=== PATIENT | female | born 1965 | race Caucasian/White ===

== ENCOUNTER 2016-06-01 16:29 | Emergency (ER) | payer OTHER ==
[~2016-06-01] VITALS: Ht 157.5 cm; Wt 73.9 kg
[~2016-06-01 16:29] MED LIST: ATOR10TA88 PO; FLUT1INH INH; INSDGI SC; KLN5X PO; LSN25 PO; MELO15TA4 PO; METF-384 PO; NAPR1TAB9 PO; NRN600 PO; NRT75 PO; OXYC-609 PO; PNC/500 PO; VNTHFA/IN INH; WLLSR100 PO
[2016-06-01 16:32] VITALS: Ht 157.5 cm; Wt 73.9 kg
--- NOTE | 2016-06-01 17:48 | DIAGNOSTIC IMAGING REPORT ---
CERVICAL SPINE 5 VIEWS HISTORY: right neck pain into r shoulder COMPARISON: Cervical spine 01/24/2013. FINDINGS: The cervical spine is visualized from C1 through the superior endplate of T1. There is no fracture. No subluxation. Mild disc space narrowing and endplate osteophytes at C5-C6 and C6-C7 which slightly progressed. Straightening of the cervical spine. Prevertebral soft tissues and the atlantodens interval are intact. IMPRESSION: No fracture or subluxation within the cervical spine. Progression of the mild degenerative disc disease within the lower cervical spine. Electronically signed by: Iggy Arango M.D. 06/01/2016 5:46 PM Dictated Date/Time: 06/01/2016 5:45 PM
[2016-06-01] MEDS ORDERED: CYCL10TA6 PO (18:28)
--- NOTE | 2016-06-01 18:28 | EMERGENCY ROOM VISIT NOTE ---
ED Visit Note First contact with patient: 16:38 CHIEF COMPLAINT: Right-sided neck pain radiating to the right shoulder since this morning History of present illness: Patient is a [id number] 50-year-old white female who presents to the emergency department for evaluation of pain in the right side of the neck that radiates into the top of the right shoulder. She states she woke with the pain today. She has done nothing for her symptoms. She states the pain is worse with movement of her neck and her shoulder. She denies any radiation of the pain down into her arm. There is no numbness, tingling, weakness or paresthesias. She denies a history of neck or shoulder problems. 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 She denies any symptoms into the left arm. She rates her pain an 8/ 10. REVIEW OF SYSTEMS: Review of systems as per HPI. All other systems reviewed were negative. At least 6 systems reviewed. PMH: Electronic medical records are reviewed and summarized as above/below. See Problem List. SOCIAL HISTORY: Patient lives at home. Smoker. PHYSICAL EXAM: Vital Signs: Reviewed Nurse's notes. MENTAL STATUS: Alert, oriented, and cooperative. HEENT: Normocephalic, atraumatic. Pupils equal, round, reactive to light and accommodation. EOMs intact without nystagmus. Sclera are anicteric. Tympanic membranes intact, with normal landmarks. External canals are clear. Oral and nasopharynx are clear. Mucous membranes are moist. NECK: Right cervical paraspinous, trapezius and rhomboid muscle tenderness, no midline tenderness over spinous processes, no muscle spasm. Cervical spine range of motion diminished secondary to discomfort. CHEST: Non-tender, symmetrical, no retractions. HEART: Regular rate and rhythm. LUNGS: Clear to auscultation. MUSCULOSKELETAL: Examination of the right shoulder does not reveal any deformity. She has no pain over the acromioclavicular joint, proximal biceps tendon or the rotator cuff insertion. Passive internal and external rotation are full. There is no crepitus or impingement with range of motion. NEUROLOGICAL: Alert, oriented, and cooperative. Cranial nerves, sensation and strength grossly intact. EMERGENCY DEPARTMENT COURSE: X-rays of the cervical spine were obtained. Mild degenerative changes were noted. The patient has reproducible muscular discomfort in the right neck and upper back region. Differential diagnoses entertained included cervical strain, cervical radiculopathy, shoulder tendinitis or bursitis, among others. The patient is on a no narcotics policy at our emergency department. She will be placed on Flexeril and was encouraged to use ibuprofen for discomfort. Heat and gentle stretching and range of motion exercises to help reduce stiffness and spasm. Patient was discharged home in good condition. She rated her discomfort a 5/10 at discharge, despite no intervention. CERVICAL SPINE 5 VIEWS HISTORY: right neck pain into r shoulder COMPARISON: Cervical spine 01/24/2013. FINDINGS: The cervical spine is visualized from C1 through the superior endplate of T1. There is no fracture. No subluxation. Mild disc space narrowing and endplate osteophytes at C5-C6 and C6-C7 which slightly progressed. Straightening of the cervical spine. Prevertebral soft tissues and the atlantodens interval are intact. IMPRESSION: No fracture or subluxation within the cervical spine. Progression of the mild degenerative disc disease within the lower cervical spine. Problem List Medical Problems: (1) Abscess of buttock, right Status: Resolved (2) ALCOH DEP NEC/NOS-UNSPEC Status: Chronic (3) Alcohol intoxication Status: Resolved (4) Alcohol intoxication Status: Resolved (5) Alcohol intoxication Status: Resolved (6) Altered level of consciousness Status: Resolved (7) ASTHMA, UNSPECIFIED Status: Chronic (8) BIPOLAR DISORDER, UNSPECIFIED Status: Chronic (9) Chronic dental pain Status: Chronic (10) Closed head injury Status: Resolved (11) COPD (chronic obstructive pulmonary disease) Status: Chronic (12) DDD (degenerative disc disease), lumbar Status: Chronic (13) DIAB NITESH WO COMPL, TYPE I [JUVENILE TYPE], NOT UNCNTRLD Status: Chronic (14) Diabetes mellitus Status: Chronic (15) ESOPHAGEAL REFLUX Status: Chronic (16) Fall Status: Resolved (17) Fall due to ice or snow Status: Resolved (18) Fall due to ice or snow Status: Resolved (19) FAM HX-CHR RESP COND NEC Status: Chronic (20) FAM HX-DIABETES MELLITUS Status: Chronic (21) FAM HX-ISCHEM HEART DIS Status: Chronic (22) FAMILY HISTORY OF OTHER CARDIOVASCULAR DISEASES Status: Chronic (23) FAMILY HX-MALIGNANCY NOS Status: Chronic (24) HERPES SIMPLEX NOS Status: Chronic (25) HTN (hypertension) Status: Chronic (26) Hyperglycemia Status: Resolved (27) Hyperglycemia Status: Resolved (28) HYPERTENSION NOS Status: Chronic (29) Hypothermia Status: Resolved (30) Left arm pain Status: Resolved (31) Left shoulder pain Status: Resolved (32) Left shoulder pain Status: Resolved (33) Lumbar back pain Status: Chronic (34) Neuropathy Status: Chronic (35) Otitis media Status: Resolved (36) Pain, dental Status: Resolved (37) Pain, dental Status: Resolved (38) PILONIDAL CYST W ABSCESS Status: Chronic (39) Right ankle sprain Status: Resolved (40) Right knee sprain Status: Resolved (41) Seizure disorder Status: Chronic (42) Spondylolisthesis of lumbar region Status: Chronic (43) TOBACCO USE DISORDER Status: Chronic Current/Historical Medications Scheduled Atorvastatin (Lipitor), 10 MG PO HS Bupropion HCl (Bupropion HCl Sr), 100 MG PO QAM Fluticasone Furoate-Vilanterol (Breo Ellipta), 1 PUFF INH DAILY Gabapentin (Gabapentin), 600 MG PO TID Insulin Glargine (Lantus), 20 UNITS SC QAM Insulin Glargine (Lantus), 30 UNITS SC QPM Lisinopril (Lisinopril), 2.5 MG PO DAILY Meloxicam (Meloxicam), 15 MG PO DAILY Metformin Hcl (Glucophage), 1,000 MG PO BID Nortriptyline HCl (Nortriptyline HCl), 75 MG PO HS Scheduled PRN Albuterol Hfa (Ventolin Hfa), 4 PUFFS INH TID PRN for SOB/Wheezing Clonazepam (Clonazepam), 0.5 MG PO TID PRN for Anxiety Cyclobenzaprine Hcl (Flexeril), 10 MG PO TID PRN for Muscle Spasms Naproxen (Aleve), 440 MG PO UD PRN for Pain Oxycodone HCl (Oxycodone HCl), 5 MG PO Q6-8HRS PRN for Pain Allergies Coded Allergies: Mushroom (Verified Allergy, Severe, THROAT SWELLS. CANT BREATHE, 06/01/16) Hydrocodone (Verified Allergy, Unknown, SHORTNESS OF BREATH, 06/01/16) Meperidine (Unverified Allergy, Unknown, VOMIT, 06/01/16) Morphine (Verified Allergy, Unknown, Vomiting, 06/01/16) Ketorolac (Verified Adverse Reaction, Intermediate, GI SYMPTOMS, 06/01/16) Tramadol (Verified Adverse Reaction, Unknown, vomiting, 06/01/16) Vital Signs Date Time Temp Pulse Resp B/P Pulse Ox O2 Delivery O2 Flow Rate FiO2 06/01/16 18:49 36.7 105 16 118/68 97 06/01/16 18:47 105 16 118/68 97 Room Air 06/01/16 16:32 36.7 110 16 122/70 97 Room Air Departure Information Impression Primary Impression: Neck pain on right side Prescriptions Cyclobenzaprine Hcl (FLEXERIL) 10 Mg Tab 10 MG PO TID Y for Muscle Spasms, #20 TAB Prov: Marina Munoz PA 06/01/16 Referrals Laureano Davila D.Zaheer (PCP) Patient Instructions My [facility] Additional Instructions Cyclobenzaprine (Flexeril) 10 mg: Take 1 pills 3 times daily as needed for muscle spasms.. Avoid alcohol, operating machinery or dangerous equipment, working on ladders or roofs, DRIVING, or situations where being under the influence may be dangerous. Ibuprofen(Motrin, Advil) may be used for fever or pain. Use 600mg every six hours as needed. Take with food. Avoid using more than 2400mg in a 24 hour period. Do not use 2400mg per day for more than three consecutive days without physician direction. Prolonged inappropriate use can lead to stomach upset or ulcers. This medication can be taken if you need to drive, work, or perform activities which may be dangerous when taking narcotic pain medication. (AND/OR) Acetaminophen(Tylenol) may be used for fever or pain. Use 1000mg every six hours as needed. Avoid using more than 3000mg in a 24 hour period. This medication can be taken if you need to drive, work, or perform activities which may be dangerous when taking narcotic pain medication. Rest and avoid heavy lifting until your symptoms resolve and then gradually return to full activity. A good rule of thumb is if it hurts your back to perform a certain activity, then it should be avoided until you are healthy again. A heating pad, warm compresses, or a hot shower may help with tight muscles and can be done several times a day as needed. Gentle stretching and range of motion exercises to help reduce stiffness and spasm. Continue current medications. Return to the ER immediately for any numbness, tingling, severe pain, loss of control of your bowels or bladder, inability to walk, or as needed. Follow up with your primary care physician within 3-5 days for a recheck of your current condition.
[2016-06-01 18:49] VITALS: BP 118/68; PULSE 105; TEMP 36.7; O2SAT 97
== END 2016-06-01 18:50 | disposition home or self-care (01) ==
LOC: C.EDB 16:30 → C.EDD 18:50
DX: M54.2 Cervicalgia (principal); F10.20 Alcohol dependence, uncomplicated; J45.909 Unspecified asthma, uncomplicated; F31.9 Bipolar disorder, unspecified; J44.9 Chronic obstructive pulmonary disease, unspecified; E10.9 Type 1 diabetes mellitus without complications; K21.9 Gastro-esophageal reflux disease without esophagitis; I10 Essential (primary) hypertension; M54.5 Low back pain; G89.29 Other chronic pain; G40.909 Epilepsy, unspecified, not intractable, without status epilepticus; M43.16 Spondylolisthesis, lumbar region; Z79.4 Long term (current) use of insulin; Z79.899 Other long term (current) drug therapy; Z83.3 Family history of diabetes mellitus; Z82.49 Family history of ischemic heart disease and other diseases of the circulatory system; Z83.6 Family history of other diseases of the respiratory system; Z80.9 Family history of malignant neoplasm, unspecified

== ENCOUNTER 2016-06-26 23:12 | Emergency (ER) | payer OTHER ==
[~2016-06-26] VITALS: Ht 157.5 cm; Wt 72.9 kg
[~2016-06-26 23:12] MED LIST changes: -PNC/500 PO
[2016-06-26 23:22] VITALS: TEMP 37; Ht 157.5 cm; Wt 72.9 kg
[2016-06-26] MEDS ORDERED: DEXAMETHASONE SOD INJ 10 MG/ML VIAL IV ONE (23:45)
[2016-06-26] MEDS ORDERED: AMPICILLIN/SULBACTAM SOD INJ 3,000 MG in SODIUM CHLORIDE 0.9% 100ML 100 ML IV ONE (23:45)
[2016-06-26] MEDS ORDERED: INSDGI SC ×2 (23:48)
[2016-06-26 23:56] LABS: BASO % 0.2 %; BASO ABS # 0.03 K/uL (0-0.2); COMPLETE YES; EOS % 1.6 %; HEMATOCRIT 46.1 % (37-47); IG% 0.2 %; LYMPH % 37.3 %; LYMPH ABS # 4.54 K/uL (1.2-3.4); MEAN CELL VOLUME 92.2 fL (80-100); MEAN CORPUSCULAR HGB CONC 35.8 g/dl (32-36); MEAN PLATELET VOLUME 11.2 fL (7.4-10.4); NEUT % 53.7 %; PLATELET COUNT 235 K/uL (130-400); WHITE BLOOD COUNT 12.16 K/uL (4.8-10.8)
[2016-06-27 00:17] LABS: BUN/CREATININE RATIO 21.6 (10-20); CREATININE 0.74 mg/dl (0.60-1.20)
[2016-06-27] MEDS ORDERED: OPTIRAY 320 IV PRN (00:30)
--- NOTE | 2016-06-27 01:49 | EMERGENCY ROOM VISIT NOTE ---
History First contact with patient: 23:32 Chief Complaint: FACIAL PAIN/INJURY Stated Complaint: SWOLLEN JAW ON LEFT SIDE History of Present Illness The patient is a 50 year old female who presents to the Emergency Room with complaints of left lower jaw pain and swelling for the past day with subjective fever and chills. Patient states all her teeth are gone. No injury to the area. No temperature was taken. Patient denies chest pain, dyspnea, neck stiffness, sore throat, earache, sinus pain or congestion, vomiting, diarrhea. Blood sugars have been in the low 100s. Tetanus is current per patient. She continues to smoke. Review of Systems See HPI for pertinent positives & negatives. A total of 10 systems reviewed and were otherwise negative. Past Medical/Surgical History Medical Problems: (1) Abscess of buttock, right (2) Acute diverticulitis of intestine (3) ALCOH DEP NEC/NOS-UNSPEC (4) Alcohol intoxication (5) Alcohol intoxication (6) Alcohol intoxication (7) Altered level of consciousness (8) ASTHMA, UNSPECIFIED (9) BIPOLAR DISORDER, UNSPECIFIED (10) Chronic dental pain (11) Closed head injury (12) COPD (chronic obstructive pulmonary disease) (13) DDD (degenerative disc disease), lumbar (14) DIAB NITESH WO COMPL, TYPE I [JUVENILE TYPE], NOT UNCNTRLD (15) Diabetes mellitus (16) ESOPHAGEAL REFLUX (17) Fall (18) Fall due to ice or snow (19) Fall due to ice or snow (20) FAM HX-CHR RESP COND NEC (21) FAM HX-DIABETES MELLITUS (22) FAM HX-ISCHEM HEART DIS (23) FAMILY HISTORY OF OTHER CARDIOVASCULAR DISEASES (24) FAMILY HX-MALIGNANCY NOS (25) HERPES SIMPLEX NOS (26) HTN (hypertension) (27) Hyperglycemia (28) Hyperglycemia (29) HYPERTENSION NOS (30) Hypothermia (31) Left arm pain (32) Left shoulder pain (33) Left shoulder pain (34) Lumbar back pain (35) Neuropathy (36) Otitis media (37) Pain, dental (38) Pain, dental (39) PILONIDAL CYST W ABSCESS (40) Pneumonia (41) Right ankle sprain (42) Right knee sprain (43) Seizure disorder (44) Spondylolisthesis of lumbar region (45) TOBACCO USE DISORDER Family History FHx: cancer FHx: diabetes FHx: heart disease FHx: hypertension FHx: lung disease Social History Smoking Status: Current Every Day Smoker Alcohol Use: occasionally Drug Use: none Marital Status: Housing Status: lives with family Occupation Status: employed Current/Historical Medications Scheduled Atorvastatin (Lipitor), 10 MG PO HS Bupropion HCl (Bupropion HCl Sr), 100 MG PO QAM Fluticasone Furoate-Vilanterol (Breo Ellipta), 1 PUFF INH DAILY Gabapentin (Gabapentin), 600 MG PO TID Insulin Glargine (Lantus), 20 UNITS SC QAM Insulin Glargine (Lantus), 30 UNITS SC QPM Lisinopril (Lisinopril), 2.5 MG PO DAILY Meloxicam (Meloxicam), 15 MG PO DAILY Metformin Hcl (Glucophage), 1,000 MG PO BID Nortriptyline HCl (Nortriptyline HCl), 75 MG PO HS Scheduled PRN Albuterol Hfa (Ventolin Hfa), 4 PUFFS INH TID PRN for SOB/Wheezing Clonazepam (Clonazepam), 0.5 MG PO TID PRN for Anxiety Naproxen (Aleve), 440 MG PO UD PRN for Pain Oxycodone HCl (Oxycodone HCl), 5 MG PO Q6-8HRS PRN for Pain Allergies Coded Allergies: Mushroom (Verified Allergy, Severe, THROAT SWELLS. CANT BREATHE, 06/26/16) Hydrocodone (Verified Allergy, Unknown, SHORTNESS OF BREATH, 06/26/16) Meperidine (Unverified Allergy, Unknown, VOMIT, 06/26/16) Morphine (Verified Allergy, Unknown, Vomiting, 06/26/16) Ketorolac (Verified Adverse Reaction, Intermediate, GI SYMPTOMS, 06/26/16) Tramadol (Verified Adverse Reaction, Unknown, vomiting, 06/26/16) Physical Exam Vital Signs Date Time Temp Pulse Resp B/P Pulse Ox O2 Delivery O2 Flow Rate FiO2 06/27/16 00:48 101 18 134/78 92 Room Air 06/26/16 23:22 37.0 107 18 154/99 94 Room Air Physical Exam VITALS: Vitals are noted on the nurse's note and reviewed by myself. Vital signs stable. GENERAL: Pleasant female, in no acute distress, nondiaphoretic, well-developed well-nourished. SKIN: The skin was without rashes, erythema, edema, or bruising. There is no tenting of the skin. Capillary reflex less than 2 seconds. HEAD: Normocephalic atraumatic. EARS: External auditory canals clear, tympanic membranes pearly webb without erythema or effusion bilaterally. EYES: Pupils equal round and reactive to light and accommodation. Conjunctivae without injection, sclerae without icterus. Extraocular movements intact. NOSE: Patent, turbinates without inflammation or discharge. No sinus tenderness. MOUTH: Mucous membranes moist. Pharynx without erythema or exudate. Uvula midline. Airway patent. Tongue does not deviate. No Curt angina Face: Left lower jaw line edematous and erythematous concerning for infection Dental exam: No teeth present. Minimal gum swelling to the left lower jawline with no palpable abscess NECK: Supple without nuchal rigidity. No lymphadenopathy. No thyromegaly. Cervical spine is nontender. No JVD. HEART: Regular rate and rhythm without murmurs gallops or rubs. LUNGS: Clear to auscultation bilaterally without wheezes, rales or rhonchi. No dullness to percussion. No retractions or accessory muscle use. ABDOMEN: Positive bowel sounds x 4. Normal tympanic percussion. Soft, nontender, without masses or organomegaly. Shen sign negative. No guarding or rebound tenderness. MUSCULOSKELETAL: No muscle atrophy, erythema, or edema noted. NEURO: Patient was alert and oriented to person place and time. Normal sensation to light and sharp touch. No focal neurological deficits. Medical Decision & Procedures Laboratory Results 06/26/16 23:50 Red Blood Count 5.00, Mean Corpuscular Volume 92.2, Mean Corpuscular Hemoglobin 33.0, Mean Corpuscular Hemoglobin Concent 35.8, Mean Platelet Volume 11.2, Neutrophils (%) (Auto) 53.7, Lymphocytes (%) (Auto) 37.3, Monocytes (%) (Auto) 7.0, Eosinophils (%) (Auto) 1.6, Basophils (%) (Auto) 0.2, Neutrophils # (Auto) 6.53, Lymphocytes # (Auto) 4.54, Monocytes # (Auto) 0.85, Eosinophils # (Auto) 0.19, Basophils # (Auto) 0.03 06/26/16 23:50 Test 3/15/17 23:50 White Blood Count 12.16 K/uL (4.8-10.8) Red Blood Count 5.00 M/uL (4.2-5.4) Hemoglobin 16.5 g/dL (12.0-16.0) Hematocrit 46.1 % (37-47) Mean Corpuscular Volume 92.2 fL (80-100) Mean Corpuscular Hemoglobin 33.0 pg (25-34) Mean Corpuscular Hemoglobin Concent 35.8 g/dl (32-36) Platelet Count 235 K/uL (130-400) Mean Platelet Volume 11.2 fL (7.4-10.4) Neutrophils (%) (Auto) 53.7 % Lymphocytes (%) (Auto) 37.3 % Monocytes (%) (Auto) 7.0 % Eosinophils (%) (Auto) 1.6 % Basophils (%) (Auto) 0.2 % Neutrophils # (Auto) 6.53 K/uL (1.4-6.5) Lymphocytes # (Auto) 4.54 K/uL (1.2-3.4) Monocytes # (Auto) 0.85 K/uL (0.11-0.59) Eosinophils # (Auto) 0.19 K/uL (0-0.5) Basophils # (Auto) 0.03 K/uL (0-0.2) RDW Standard Deviation 43.2 fL (36.4-46.3) RDW Coefficient of Variation 12.7 % (11.5-14.5) Immature Granulocyte % (Auto) 0.2 % Immature Granulocyte # (Auto) 0.02 K/uL (0.00-0.02) Anion Gap 8.0 mmol/L (3-11) Est Creatinine Clear Calc Drug Dose 85.0 ml/min Estimated GFR () 109.5 Estimated GFR (Non- 94.5 BUN/Creatinine Ratio 21.6 (10-20) Calcium Level 9.0 mg/dl (8.5-10.1) Medications Administered Medications (Trade) Dose Ordered Sig/Beatrice Route Start Time Stop Time Status Last Admin Dose Admin Ampicillin Sodium/ Sulbactam Sodium/ Sodium Chloride (Unasyn Inj/Nss 100ml) 108 ml @ 200 mls/hr ONE ONCE IV 06/26/16 23:45 06/27/16 00:17 DC 06/27/16 00:05 200 MLS/HR Dexamethasone Sodium Phosphate (Decadron Inj) 10 mg NOW ONCE IV 06/26/16 23:45 06/26/16 23:46 DC 06/27/16 00:05 10 MG ED Course Prior records reviewed and summarized as above. Triage Nursing notes reviewed. Additional history obtained from family. The patient's history was concerning for swelling and redness of the skin. Differential diagnosis: Etiologies such as cellulitis, abscess, Curt angina, dental infection, stone, as well as others were entertained.. Physical examination: As above ER treatment provided: Unasyn On reassessment the patient felt better. Diagnostics interpreted by me: The labs revealed mild leukocytosis. Hyperglycemia without DKA Imaging studies: CT FACIAL: Compared with 01/25/16 No fracture or malalignment. The patient has become edentulous since the prior study. No CT evidence of osteomyelitis. No inflammatory changes. No fluid collections or masses. Incidental note of a small air collection in the right neck level of the piriform sinus may be a diverticula, similar to prior study. Visualized paranasal sinuses and mastoid air cells are clear. Incidental note of diminutive right vertebral artery ending in PICA Radiologist: Domenico Arredondo M.D. This appears to be facial cellulitis without abscess. Patient was neurovascular and neurologically intact. No deficits on exam. No signs of meningitis. No signs of Curt angina. She is advised to take antibiotics as directed and to follow-up with family for definitive care for her infection or here in the ER sooner for high fevers, neck stiffness, facial swelling, worsening signs or symptoms or as needed. By the evaluation outlined above emergent etiologies such as Curt angina, as well as others were deemed relatively unlikely. The pt informed about the findings as listed above. All questions were answered and pleased with the treatment. Return instructions were outlined and the patient was discharged in stable condition. Outpatient prescription management: Augmentin Referral: The patient was referred back to family for follow-up in 2 to 3 days for a recheck of the current condition. case reviewed with my Attending Medical Decision As above Impression Primary Impression: Facial cellulitis Departure Information Dispostion Home / Self-Care Condition GOOD Referrals Laureano Davila, D.O. (PCP) Patient Instructions My [facility] Additional Instructions Amoxicillin Clavulanate (Augmentin) 875mg: Take one pill twice daily for 10 days for your infection. All antibiotics can cause diarrhea. If this occurs and you feel worse or it does not resolve in 1-2 days follow up with your doctor or return to the Emergency Department as this could be signs of serious underlying problems. Any medication can cause an allergic reaction, stop the pills immediately and return to the ER for rash, hives, breathing difficulties, or swelling. Acetaminophen(Tylenol) may be used for fever or pain. Use 1000mg every six hours as needed. Avoid using more than 3000mg in a 24 hour period. Warm compresses to the affected area 4 times daily for 15-20 minutes. Rest and drink plenty of fluids. Continue current medications. Return to the ER for severe pain, persistent fevers, spreading redness, or any worsening of your condition. Follow up with your primary physician within 2-3 days for a recheck of the current condition.
[2016-06-27] MEDS ORDERED: AMOX875T PO (01:51)
[2016-06-27] MEDS ORDERED: AMOXICIL/CLAVU 875MG HOME PACK PO ONE (02:00)
[2016-06-27 02:01] VITALS: BP 155/79; PULSE 100; O2SAT 93
--- NOTE | 2016-06-27 06:37 | DIAGNOSTIC IMAGING REPORT ---
CT maxillofacial region FACIAL-MAXILLOFACIAL WITH CLINICAL HISTORY: left lower jaw infix trauma TECHNIQUE: Transaxial acquisition with multi axial reformatted images COMPARISON STUDY: 01/25/2016 FINDINGS: No change from the prior study. No acute process. Orbital margins appear to be intact. Mandibular condyles are intact. IMPRESSION: No acute process. No change from the prior study. Electronically signed by: Jerry Acuña M.D. 06/27/2016 6:36 AM Dictated Date/Time: 06/27/2016 6:34 AM
== END 2016-06-27 02:02 | disposition home or self-care (01) ==
LOC: C.EDB 23:14 → C.EDA 06-27 02:02
DX: L03.211 Cellulitis of face (principal); I10 Essential (primary) hypertension; E10.9 Type 1 diabetes mellitus without complications; K21.9 Gastro-esophageal reflux disease without esophagitis; J44.9 Chronic obstructive pulmonary disease, unspecified; F31.9 Bipolar disorder, unspecified; J45.909 Unspecified asthma, uncomplicated; K57.32 Diverticulitis of large intestine without perforation or abscess without bleeding; M51.36 Other intervertebral disc degeneration, lumbar region; G40.909 Epilepsy, unspecified, not intractable, without status epilepticus; F17.200 Nicotine dependence, unspecified, uncomplicated; Z86.19 Personal history of other infectious and parasitic diseases; Z87.820 Personal history of traumatic brain injury; Z87.828 Personal history of other (healed) physical injury and trauma; Z91.81 History of falling; Z79.4 Long term (current) use of insulin; Z79.84 Long term (current) use of oral hypoglycemic drugs; Z79.899 Other long term (current) drug therapy; Z88.5 Allergy status to narcotic agent; Z88.8 Allergy status to other drugs, medicaments and biological substances; Z91.018 Allergy to other foods; Z80.9 Family history of malignant neoplasm, unspecified; Z83.3 Family history of diabetes mellitus; Z82.49 Family history of ischemic heart disease and other diseases of the circulatory system

== ENCOUNTER 2016-07-12 13:10 | Emergency (ER) | payer OTHER ==
[~2016-07-12] VITALS: Ht 157.5 cm; Wt 70.0 kg
[~2016-07-12 13:10] MED LIST changes: -ATOR10TA88 PO; -FLUT1INH INH; -INSDGI SC; -LSN25 PO; -METF-384 PO; -NAPR1TAB9 PO; -NRT75 PO; -VNTHFA/IN INH
[2016-07-12 13:16] VITALS: TEMP 36.8; Ht 157.5 cm; Wt 70.0 kg
--- NOTE | 2016-07-12 13:47 | DIAGNOSTIC IMAGING REPORT ---
LEFT ANKLE MIN 3 VIEWS ROUTINE CLINICAL HISTORY: Left ankle pain following injury. COMPARISON: Left ankle radiographs April 26, 2015. FINDINGS: Alignment of the left ankle is anatomic. There is no acute fracture. Subchondral cystic change within the distal left talus is unchanged. This is likely related to osteoarthritis. There is posterior and plantar calcaneal spurring. IMPRESSION: 1. No acute fracture or dislocation of the left ankle. 2. 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 Electronically signed by: Pernell Owens M.D. 07/12/2016 1:46 PM Dictated Date/Time: 07/12/2016 1:45 PM
--- NOTE | 2016-07-12 14:00 | EMERGENCY ROOM VISIT NOTE ---
ED Visit Note First contact with patient: 13:19 CHIEF COMPLAINT: Ankle pain HISTORY OF PRESENT ILLNESS: This 50-year-old female patient presents to the emergency department ambulatory after sustaining an injury to the left ankle and foot with a twisting, inversion motion at work just prior to arrival. The patient reports that she was cleaning and stepped on a toy, twisting her left ankle. The patient complains of pain along the outside of the ankle. The patient denies pain of the foot. The patient rates the pain as sharp and and 9/ 10. The patient is not able to bear weight on the foot. Constant pain, worse with movement, weight bearing, and the dependent position. No knee pain, the patient is able to move their toes. The patient reports a feeling of numbness in her left great toe. The patient has had a previous fracture to this ankle and states that she had surgery several years ago. The patient has taken no medication for the pain. The patient denies any other injury. REVIEW OF SYSTEMS: A 6 system review of systems was completed with positives and pertinent negatives listed in the HPI. ALLERGIES: Hydrocodone, Toradol, meperidine, morphine, mushrooms, tramadol MEDICATIONS: See med list PMH: Diabetes, hypertension, COPD SOCIAL HISTORY: The patient lives locally with her sister. She is a smoker and admits to occasional alcohol use. PHYSICAL EXAM: Vital Signs: Reviewed Nurse's notes, vital signs stable. GENERAL : This is a 50-year-old female, no acute distress, but appears in pain, well- developed, well-nourished. MENTAL STATUS: Alert, oriented to person place and time, and cooperative. MUSCULOSKELETAL: The left ankle is not swollen. No deformities, erythema or ecchymosis. There is diffuse tenderness of the left ankle. There is no fifth metatarsal tenderness. There is no tenderness over the rest of the foot. There is no calf or tibia/fibular tenderness. There is no visual deformity. The foot and toes are warm and well-perfused. Dorsalis pedis pulse 2+. Sensation to pain and light touch is intact. Capillary refill less than 2 seconds. RADIOGRAPHIC FINDINGS: LEFT ANKLE MIN 3 VIEWS ROUTINE FINDINGS: Alignment of the left ankle is anatomic. There is no acute fracture. Subchondral cystic change within the distal left talus is unchanged. This is likely related to osteoarthritis. There is posterior and plantar calcaneal spurring. IMPRESSION: 1. No acute fracture or dislocation of the left ankle. 2. 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 EMERGENCY DEPARTMENT COURSE: I examined the patient. X-rays of the left ankle were reviewed by myself and read by radiology and reveal no acute findings. Gel ankle splint was applied to the ankle under my direction and the position was satisfactory. The patient was given a walker. Conservative measures were discussed with the patient. She verbalized understanding of my assessment and treatment plan. The patient was discharged home in good condition. DIAGNOSIS: Left ankle injury Problem List Medical Problems: (1) Abscess of buttock, right Status: Resolved (2) ALCOH DEP NEC/NOS-UNSPEC Status: Chronic (3) Alcohol intoxication Status: Resolved (4) Alcohol intoxication Status: Resolved (5) Alcohol intoxication Status: Resolved (6) Altered level of consciousness Status: Resolved (7) ASTHMA, UNSPECIFIED Status: Chronic (8) BIPOLAR DISORDER, UNSPECIFIED Status: Chronic (9) Chronic dental pain Status: Chronic (10) Closed head injury Status: Resolved (11) COPD (chronic obstructive pulmonary disease) Status: Chronic (12) DDD (degenerative disc disease), lumbar Status: Chronic (13) DIAB NITESH WO COMPL, TYPE I [JUVENILE TYPE], NOT UNCNTRLD Status: Chronic (14) Diabetes mellitus Status: Chronic (15) ESOPHAGEAL REFLUX Status: Chronic (16) Fall Status: Resolved (17) Fall due to ice or snow Status: Resolved (18) Fall due to ice or snow Status: Resolved (19) FAM HX-CHR RESP COND NEC Status: Chronic (20) FAM HX-DIABETES MELLITUS Status: Chronic (21) FAM HX-ISCHEM HEART DIS Status: Chronic (22) FAMILY HISTORY OF OTHER CARDIOVASCULAR DISEASES Status: Chronic (23) FAMILY HX-MALIGNANCY NOS Status: Chronic (24) HERPES SIMPLEX NOS Status: Chronic (25) HTN (hypertension) Status: Chronic (26) Hyperglycemia Status: Resolved (27) Hyperglycemia Status: Resolved (28) HYPERTENSION NOS Status: Chronic (29) Hypothermia Status: Resolved (30) Left arm pain Status: Resolved (31) Left shoulder pain Status: Resolved (32) Left shoulder pain Status: Resolved (33) Lumbar back pain Status: Chronic (34) Neuropathy Status: Chronic (35) Otitis media Status: Resolved (36) Pain, dental Status: Resolved (37) Pain, dental Status: Resolved (38) PILONIDAL CYST W ABSCESS Status: Chronic (39) Right ankle sprain Status: Resolved (40) Right knee sprain Status: Resolved (41) Seizure disorder Status: Chronic (42) Spondylolisthesis of lumbar region Status: Chronic (43) TOBACCO USE DISORDER Status: Chronic Current/Historical Medications Scheduled Atorvastatin (Lipitor), 10 MG PO HS Bupropion HCl (Bupropion HCl Sr), 100 MG PO QAM Fluticasone Furoate-Vilanterol (Breo Ellipta), 1 PUFF INH DAILY Gabapentin (Gabapentin), 600 MG PO TID Insulin Glargine (Lantus), 20 UNITS SC QAM Insulin Glargine (Lantus), 30 UNITS SC QPM Lisinopril (Lisinopril), 2.5 MG PO DAILY Meloxicam (Meloxicam), 15 MG PO DAILY Metformin Hcl (Glucophage), 1,000 MG PO BID Nortriptyline HCl (Nortriptyline HCl), 75 MG PO HS Scheduled PRN Albuterol Hfa (Ventolin Hfa), 4 PUFFS INH TID PRN for SOB/Wheezing Clonazepam (Clonazepam), 0.5 MG PO TID PRN for Anxiety Naproxen (Aleve), 440 MG PO UD PRN for Pain Oxycodone HCl (Oxycodone HCl), 5 MG PO Q6-8HRS PRN for Pain Allergies Coded Allergies: Mushroom (Verified Allergy, Severe, THROAT SWELLS. CANT BREATHE, 06/26/16) Hydrocodone (Verified Allergy, Unknown, SHORTNESS OF BREATH, 06/26/16) Meperidine (Unverified Allergy, Unknown, VOMIT, 06/26/16) Morphine (Verified Allergy, Unknown, Vomiting, 06/26/16) Ketorolac (Verified Adverse Reaction, Intermediate, GI SYMPTOMS, 06/26/16) Tramadol (Verified Adverse Reaction, Unknown, vomiting, 06/26/16) Vital Signs Date Time Temp Pulse Resp B/P Pulse Ox O2 Delivery O2 Flow Rate FiO2 07/12/16 14:57 98 107/80 94 07/12/16 13:16 36.8 79 18 122/81 100 Room Air Departure Information Impression Primary Impression: Left ankle sprain Dispostion Home / Self-Care Condition GOOD Referrals Laureano Davila D.OLars (PCP) Patient Instructions My [facility] Additional Instructions You have been treated in the Emergency Department for an Ankle sprain. For pain control, you can use the following [id number] medicines (if >12 yo): - Regular strength (325mg/tab) Tylenol (acetaminophen) 2 tabs every 4-6 hours as needed. Do not exceed 12 tablets in a 24 hour period. Avoid taking more than 4 grams (4000 mg) of Tylenol per day. This includes any other sources of acetaminophen you may take on a regular basis. - Regular strength (200 mg/tab) Advil (ibuprofen) 1-2 tabs every 4-6 hours as needed. Do not exceed a dose of 3200 mg per day. If this is a recent injury (<24 hrs), ice can be applied to the area of pain for the first 3 days to help decrease pain and inflammation. Wear the brace and use the walker until you're able to walk without difficulty. Follow-up with your primary care provider or orthopedics if you have persistent pain in 6-7 days. Return to the Emergency Department if your current symptoms worsen despite treatment course outlined above, or if you develop any of the following symptoms : intractable pain despite aforementioned treatment course or new onset of numbness or tingling of the foot. Problem Qualifiers Primary Impression: Left ankle sprain Encounter type: initial encounter Involved ligament of ankle: unspecified ligament Qualified Codes: S93.402A - Sprain of unspecified ligament of left ankle, initial encounter
[2016-07-12 14:57] VITALS: BP 107/80; PULSE 98; O2SAT 94
[2017-02-08] MEDS ORDERED: AMOX875T PO (16:38)
[2017-03-18] MEDS ORDERED: ATOR10TA82 PO (07:33)
[2017-03-18] MEDS ORDERED: LSN25 PO (15:38)
[2017-03-18] MEDS ORDERED: NRT75 PO (15:50)
[2017-03-18] MEDS ORDERED: NRN800 PO (16:53)
[2017-03-18] MEDS ORDERED: KLN1X PO (16:53)
[2017-03-18] MEDS ORDERED: BSP/10 PO (16:53)
[2017-03-18] MEDS ORDERED: VNTHFA/IN INH (17:22)
[2017-03-18] MEDS ORDERED: NAPR1TAB9 PO (17:23)
== END 2016-07-12 14:58 | disposition home or self-care (01) ==
LOC: C.EDB 13:11 → C.EDD 14:58
DX: S93.402A Sprain of unspecified ligament of left ankle, initial encounter (principal); X58.XXXA Exposure to other specified factors, initial encounter; I10 Essential (primary) hypertension; E11.9 Type 2 diabetes mellitus without complications; J44.9 Chronic obstructive pulmonary disease, unspecified; F31.9 Bipolar disorder, unspecified; K21.9 Gastro-esophageal reflux disease without esophagitis; J45.909 Unspecified asthma, uncomplicated; F17.200 Nicotine dependence, unspecified, uncomplicated; Z86.19 Personal history of other infectious and parasitic diseases; Z87.828 Personal history of other (healed) physical injury and trauma; Z79.4 Long term (current) use of insulin; Z79.84 Long term (current) use of oral hypoglycemic drugs; Z79.899 Other long term (current) drug therapy; Z88.5 Allergy status to narcotic agent; Z88.8 Allergy status to other drugs, medicaments and biological substances; Z88.3 Allergy status to other anti-infective agents; Z82.49 Family history of ischemic heart disease and other diseases of the circulatory system; Z80.9 Family history of malignant neoplasm, unspecified

== ENCOUNTER → 2016-07-19 | Outpatient (CLI) | payer OTHER ==
[~2016-07-19] MED LIST changes: +AMOX875T PO; +ATOR10TA82 PO; +BSP/10 PO; +CEPH500C PO; +FLUT1INH INH; +INSDGI SC; +KLN1X PO; +LSN25 PO; +METF-384 PO; +NAPR1TAB9 PO; +NRN800 PO; +NRT75 PO; +OXYC1TAB3 PO; +SERT50TA PO; +SULF800T23 PO; +VALA1TAB31 PO; +VNTHFA/IN INH; +ZLF/100 PO; +ZOLP10TA6 PO
--- NOTE | 2016-07-19 13:54 | DIAGNOSTIC IMAGING REPORT ---
LEFT ANKLE MIN 3 VIEWS CLINICAL HISTORY: Lateral left ankle pain following injury. COMPARISON: Left ankle radiographs July 12, 2016. FINDINGS: Alignment of left ankle is anatomic. No acute fracture is identified. Irregularity of the fibular tip is likely chronic. Subchondral cystic change within the distal left tibia is noted. There is moderate posterior and plantar calcaneal spurring. IMPRESSION: 1. No acute fracture or dislocation of the left ankle. 2. Tibiotalar joint osteoarthritis. Electronically signed by: Pernell Owens M.D. 07/19/2016 1:52 PM Dictated Date/Time: 07/19/2016 1:47 PM
== END | disposition home or self-care (01) ==
LOC: C.RDSM 13:47
PROVIDERS: ATTEND Family Medicine
DX: M19.072 Primary osteoarthritis, left ankle and foot (principal)

== ENCOUNTER 2016-08-04 20:39 | Emergency (ER) | payer OTHER ==
[~2016-08-04] VITALS: Ht 157.5 cm; Wt 74.8 kg
[~2016-08-04 20:39] MED LIST changes: -AMOX875T PO; -ATOR10TA82 PO; -BSP/10 PO; -CEPH500C PO; -FLUT1INH INH; -INSDGI SC; -KLN1X PO; -LSN25 PO; -METF-384 PO; -NAPR1TAB9 PO; -NRN800 PO; -NRT75 PO; -OXYC1TAB3 PO; -SERT50TA PO; -SULF800T23 PO; -VALA1TAB31 PO; -VNTHFA/IN INH; -ZLF/100 PO; -ZOLP10TA6 PO
[2016-08-04 20:46] VITALS: TEMP 36.5; Ht 157.5 cm; Wt 74.8 kg
[2016-08-04] MEDS ORDERED: OXYCODONE IR HOME PACK PO STA (21:57)
[2016-08-04] MEDS ORDERED: OXYCODONE HCL IR 5 MG TAB (IMMEDIATE RELEASE) PO STA (21:57)
--- NOTE | 2016-08-04 21:57 | EMERGENCY ROOM VISIT NOTE ---
ED Visit Note First contact with patient: 20:58 I have personally evaluated and examined this patient. I agree with assessment and plan of Perry Ruff PA-C. Droplet on jagruti petal appearance rash right upper buttock severely painful and appears to be zoster. No other spread though. Already failed abx. Pain meds and will given valtrex even though not very effective this far post beginning of rash.
[2016-08-04] MEDS ORDERED: VALA1TAB31 PO (22:02)
[2016-08-04] MEDS ORDERED: OXYC1TAB3 PO (22:02)
--- NOTE | 2016-08-04 22:04 | EMERGENCY ROOM VISIT NOTE ---
History First contact with patient: 20:58 Chief Complaint: OTHER COMPLAINT Stated Complaint: LOWER BUTTOCK BUMPS History of Present Illness The patient is a 50 year old female who presents to the Emergency Room via private vehicle with complaints of "lower buttocks bumps". The patient states that on Friday she began with an itch in the tailbone region, and then felt lumps which were very painful. She then schedule an appointment with her family doctor and was seen Friday. She was told that this was something related to hair in that region and was placed upon what she believes was Augmentin. She is been taking this medication without relief and notes extreme worsening of her pain. She denies any fevers, chills, shingles vaccine or having shingles before. Review of Systems A complete 6-point Review of Systems was discussed with the patient, with pertinent positives and negatives listed in the History of Present Illness. All remaining Review of Systems questions can be considered negative unless otherwise specified. Past Medical/Surgical History Medical Problems: (1) Abscess of buttock, right (2) Acute diverticulitis of intestine (3) ALCOH DEP NEC/NOS-UNSPEC (4) Alcohol intoxication (5) Alcohol intoxication (6) Alcohol intoxication (7) Altered level of consciousness (8) ASTHMA, UNSPECIFIED (9) BIPOLAR DISORDER, UNSPECIFIED (10) Chronic dental pain (11) Closed head injury (12) COPD (chronic obstructive pulmonary disease) (13) DDD (degenerative disc disease), lumbar (14) DIAB NITESH WO COMPL, TYPE I [JUVENILE TYPE], NOT UNCNTRLD (15) Diabetes mellitus (16) ESOPHAGEAL REFLUX (17) Fall (18) Fall due to ice or snow (19) Fall due to ice or snow (20) FAM HX-CHR RESP COND NEC (21) FAM HX-DIABETES MELLITUS (22) FAM HX-ISCHEM HEART DIS (23) FAMILY HISTORY OF OTHER CARDIOVASCULAR DISEASES (24) FAMILY HX-MALIGNANCY NOS (25) HERPES SIMPLEX NOS (26) HTN (hypertension) (27) Hyperglycemia (28) Hyperglycemia (29) HYPERTENSION NOS (30) Hypothermia (31) Left arm pain (32) Left shoulder pain (33) Left shoulder pain (34) Lumbar back pain (35) Neuropathy (36) Otitis media (37) Pain, dental (38) Pain, dental (39) PILONIDAL CYST W ABSCESS (40) Pneumonia (41) Right ankle sprain (42) Right knee sprain (43) Seizure disorder (44) Spondylolisthesis of lumbar region (45) TOBACCO USE DISORDER Family History FHx: cancer FHx: diabetes FHx: heart disease FHx: hypertension FHx: lung disease Social History Smoking Status: Current Every Day Smoker Alcohol Use: occasionally Drug Use: none Marital Status: Housing Status: lives with family Occupation Status: employed Current/Historical Medications Scheduled Atorvastatin (Lipitor), 10 MG PO HS Bupropion HCl (Bupropion HCl Sr), 100 MG PO QAM Fluticasone Furoate-Vilanterol (Breo Ellipta), 1 PUFF INH DAILY Gabapentin (Gabapentin), 600 MG PO TID Insulin Glargine (Lantus), 20 UNITS SC QAM Insulin Glargine (Lantus), 30 UNITS SC QPM Lisinopril (Lisinopril), 2.5 MG PO DAILY Meloxicam (Meloxicam), 15 MG PO DAILY Metformin Hcl (Glucophage), 1,000 MG PO BID Nortriptyline HCl (Nortriptyline HCl), 75 MG PO HS Valacyclovir Hcl (Valtrex), 1 GM PO TID Scheduled PRN Albuterol Hfa (Ventolin Hfa), 4 PUFFS INH TID PRN for SOB/Wheezing Clonazepam (Clonazepam), 0.5 MG PO TID PRN for Anxiety Naproxen (Aleve), 440 MG PO UD PRN for Pain Oxycodone HCl (Oxycodone HCl), 5 MG PO Q6-8HRS PRN for Pain Oxycodone Ir (Roxicodone Ir), 1-2 TAB PO Q4H PRN for Pain Allergies Coded Allergies: Mushroom (Verified Allergy, Severe, THROAT SWELLS. CANT BREATHE, 08/04/16) Hydrocodone (Verified Allergy, Unknown, SHORTNESS OF BREATH, 08/04/16) Meperidine (Verified Allergy, Unknown, VOMIT, 08/04/16) Morphine (Verified Allergy, Unknown, Vomiting, 08/04/16) Ketorolac (Verified Adverse Reaction, Intermediate, GI SYMPTOMS, 08/04/16) Tramadol (Verified Adverse Reaction, Unknown, vomiting, 08/04/16) Physical Exam Vital Signs Date Time Temp Pulse Resp B/P Pulse Ox O2 Delivery O2 Flow Rate FiO2 08/04/16 22:17 78 18 123/73 98 08/04/16 20:46 36.5 107 18 147/74 95 Room Air Physical Exam VITAL SIGNS - Vital signs and nursing notes were reviewed. Afebrile, hypertensive at 147/74, tachycardic at 107 and is saturating well on room air 95 %. GENERAL -50-year-old female appearing her stated age who is in no acute distress but does appear to be in pain. She is leaning and favoring her left gluteal region. Communicates well with provider and answers questions appropriately. SKIN - there is a dewdrop on a jagruti pedal appearance at the inferior portion of the pilonidal region/sacral region with a dewdrop on a jagruti pedal appearance. This does appear to be consistent with herpes and not cellulitis. Medical Decision & Procedures Medications Administered Medications (Trade) Dose Ordered Sig/Beatrice Route Start Time Stop Time Status Last Admin Dose Admin Oxycodone HCl (Roxicodone Immediate Rel Tab) 5 mg NOW STAT PO 08/04/16 21:57 08/04/16 22:00 DC 08/04/16 22:09 5 MG Oxycodone HCl (Roxicodone Immediate Rel 5MG Home Pack) 1 homepack UD STAT PO 08/04/16 21:57 08/04/16 22:00 DC 08/04/16 22:10 1 HOMEPACK Valacyclovir HCl (Valtrex Tab) 1,000 mg NOW STAT PO 08/04/16 21:57 08/04/16 22:00 DC 08/04/16 22:12 1,000 MG Medical Decision Patient was seen and evaluated as above. After obtaining a thorough history and physical examination the patient presents with failed outpatient antibiotics for a previous diagnosis of was likely a skin infection. She has had worsening of her symptoms, and upon examination it appears that she is a dewdrop on a jagruti pedal appearance of a rash overlying the skin that overlies the inferior sacral region. This region is tender to palpation. It does not wrap around either side. The patient was also examined by my attending, and we both agree that this is likely shingles. She'll be placed upon valacyclovir although at this point this may provide minimal relief. At this point it is important to control pain, therefore she'll be given a prescription for oxycodone, and it is important to note that despite her allergies she states that she can take this medication. She was provided with a tablet of this year , a home pack followed by a short-term prescription. The patient is on the no narcotic treatment plan here in the emergency department however I do believe that given the patient's clinical presentation, and positive diagnosis of shingles clinically a short term supply is warranted in this case. The patient was educated upon management, educated upon the importance of follow-up with her family doctor, had questions answered prior to discharge, was educated upon worrisome symptoms which to return and was discharged home in good condition. In evaluation treatment this patient the following differential diagnoses were entertained: Herpes simplex, herpes zoster/shingles, cellulitis, abscess, among others. [place] Drug Monitoring Program Search Results: patient reviewed within database, no issues identified, see additional documentation Impression Primary Impression: Shingles Departure Information Dispostion Home / Self-Care Condition GOOD Prescriptions Valacyclovir Hcl (VALTREX) 1 Gm Tab 1 GM PO TID, #19 TAB Prov: Perry Ruff PA-C 08/04/16 Oxycodone Ir (Roxicodone Ir) 5 Mg Tab 1-2 TAB PO Q4H Y for Pain, #15 TAB For Initial Treatment Prov: Perry Ruff PA-C 08/04/16 Referrals Laureano Davila, D.O. (PCP) Patient Instructions My [facility] Additional Instructions You were seen in the emergency Department for a rash on your buttocks. This is most likely shingles. She was to be very painful, for this reason you have been provided with oxycodone immediate release tablets which she will indicate you're not allergic to. The oxycodone is a controlled substance and a narcotic medication it is illegal for you to drive or operate machinery with this in her system. You experience shortness of breath or trouble breathing please return medially. Please discontinue the medication then. You've also been prescribed valacyclovir. This is one gram (1000mg) 3 times daily for 7 days. This is to help with the rash. Please follow-up with your family doctor by calling them first thing tomorrow morning to indicate that you were seen in the emergency department. Please request follow-up as soon as possible. Please return to the emergency department with any new/concerning symptoms.
[2016-08-04 22:17] VITALS: BP 123/73; PULSE 78; O2SAT 98
[2017-02-08] MEDS ORDERED: AMOX875T PO (16:38)
[2017-03-18] MEDS ORDERED: ATOR10TA82 PO (07:33)
[2017-03-18] MEDS ORDERED: LSN25 PO (15:38)
[2017-03-18] MEDS ORDERED: NRT75 PO (15:50)
[2017-03-18] MEDS ORDERED: BSP/10 PO (16:53)
[2017-03-18] MEDS ORDERED: KLN1X PO (16:53)
[2017-03-18] MEDS ORDERED: NRN800 PO (16:53)
[2017-03-18] MEDS ORDERED: VNTHFA/IN INH (17:22)
[2017-03-18] MEDS ORDERED: NAPR1TAB9 PO (17:23)
== END 2016-08-04 22:18 | disposition home or self-care (01) ==
LOC: C.EDB 20:40 → C.EDD 22:18
DX: B02.9 Zoster without complications (principal); J44.9 Chronic obstructive pulmonary disease, unspecified; E10.9 Type 1 diabetes mellitus without complications; I10 Essential (primary) hypertension; E03.9 Hypothyroidism, unspecified; G40.909 Epilepsy, unspecified, not intractable, without status epilepticus; F31.9 Bipolar disorder, unspecified; K21.9 Gastro-esophageal reflux disease without esophagitis; Z79.899 Other long term (current) drug therapy; Z87.828 Personal history of other (healed) physical injury and trauma; Z82.49 Family history of ischemic heart disease and other diseases of the circulatory system; Z83.3 Family history of diabetes mellitus; Z83.6 Family history of other diseases of the respiratory system; F17.200 Nicotine dependence, unspecified, uncomplicated

== ENCOUNTER → 2016-09-12 | Outpatient (CLI) | payer OTHER ==
[~2016-09-12] MED LIST changes: +AMOX875T PO; +ATOR10TA82 PO; +BSP/10 PO; +CEPH500C PO; +FLUT1INH INH; +INSDGI SC; +KLN1X PO; +LSN25 PO; +METF-384 PO; +NAPR1TAB9 PO; +NRN800 PO; +NRT75 PO; +OXYC1TAB3 PO; +SERT50TA PO; +SULF800T23 PO; +VNTHFA/IN INH; +ZLF/100 PO; +ZOLP10TA6 PO
--- NOTE | 2016-09-12 15:39 | DIAGNOSTIC IMAGING REPORT ---
WHOLE-BODY NUCLEAR BONE SCAN CLINICAL HISTORY: Thoracic back pain. Lower extremity weakness. COMPARISON STUDY: Abdominal CT dated 10/13/2015. Chest CT dated 06/18/2013. Radiographs of the thoracic spine dated 09/05/2016. TECHNIQUE: Three hours following the IV administration of 26.9 mCi of technetium 99m MDP, whole body nuclear bone scan was performed in the anterior and posterior projections. FINDINGS: There is no abnormal osseous tracer deposition identified typical in appearance for bony metastatic disease. Typically degenerative uptake is identified in the shoulders, knees, ankles, and feet. There is no abnormal tracer deposition localizing to the thoracic spine. Low-level degenerative activity is suggested in the lower cervical spine. There is expected excreted activity within the renal collecting system and bladder. The bladder is markedly distended on the initial 3 hour bone phase images. The pelvis was better assessed on post void images. IMPRESSION: 1. There is no abnormal tracer deposition identified typical in appearance for osseous metastatic disease. 2. No abnormal tracer deposition is identified in the thoracic spine as clinically queried. 3. Foci of typically degenerative activity as above. Electronically signed by: Ruddy Grayson M.D. 09/12/2016 3:38 PM Dictated Date/Time: 09/12/2016 3:34 PM
--- NOTE | 2016-09-19 08:11 | CODING QUERY NO DIAGNOSIS ---
TREATMENT RENDERED WITHOUT A DIAGNOSIS To promote full compliance with coding requirements relating to patient care, physician participation is requested in all cases of choirmaster uncertainty. Please assist us with providing a diagnosis/symptom for the test(s) below: A diagnosis/symptom was not documented on your Order. A valid diagnosis/symptom is required to bill all insurances. Please remember that we are unable to code a diagnosis of rule out, probable, possible, questionable, or suspected. Tests that require a diagnosis: * BONE SCAN WHOLE BODY DIAGNOSIS: Provider Signature: Date: Thank you Luzmaria [facility] Once completed, please kindly fax back to [phone] For questions please call [phone]
== END | disposition home or self-care (01) ==
LOC: C.NUCL 11:43
PROVIDERS: ATTEND Orthopaedic Surgery Orthopaedic Surgery of the Spine
DX: M54.6 Pain in thoracic spine (principal)

== ENCOUNTER 2016-12-29 11:19 | Emergency (ER) | payer OTHER ==
[~2016-12-29] VITALS: Ht 157.5 cm; Wt 73.2 kg
[~2016-12-29 11:19] MED LIST changes: -AMOX875T PO; -ATOR10TA82 PO; +ATOR10TA88 PO; -BSP/10 PO; -CEPH500C PO; -KLN1X PO; -NRN800 PO; -SERT50TA PO; -SULF800T23 PO; -ZLF/100 PO; -ZOLP10TA6 PO
[2016-12-29 11:21] VITALS: TEMP 36.7; Ht 157.5 cm; Wt 73.2 kg
[2016-12-29] MEDS ORDERED: ACETAMINOPHEN 500 MG TAB PO STA (11:37)
[2016-12-29] MEDS ORDERED: SERT50TA PO (11:53)
--- NOTE | 2016-12-29 11:54 | EMERGENCY ROOM VISIT NOTE ---
History First contact with patient: 11:31 Chief Complaint: FINGER PAIN Stated Complaint: TWO FINGERS ARE TINGLY AND PAINFUL History of Present Illness The patient is a 51 year old female who presents to the Emergency Room via private vehicle with complaints of "2 fingers were tingly and painful". The patient states that yesterday while at work, she was cleaning dishes, and they' re workups stacked upon a rack. She states that she went to move this, and the rack fell and landed on her right hand at the location of the second metacarpal , midshaft. She notes that she was seen at [facility] at that time, and they diagnosed her with a hand contusion. She now has pain and swelling, and can minimally move the first second and third digits of the right hand. She also has pain shooting up the arm. Review of Systems A complete 6-point Review of Systems was discussed with the patient, with pertinent positives and negatives listed in the History of Present Illness. All remaining Review of Systems questions can be considered negative unless otherwise specified. Past Medical/Surgical History Medical Problems: (1) Abscess of buttock, right (2) Acute diverticulitis of intestine (3) ALCOH DEP NEC/NOS-UNSPEC (4) Alcohol intoxication (5) Alcohol intoxication (6) Alcohol intoxication (7) Altered level of consciousness (8) ASTHMA, UNSPECIFIED (9) BIPOLAR DISORDER, UNSPECIFIED (10) Chronic dental pain (11) Closed head injury (12) COPD (chronic obstructive pulmonary disease) (13) DDD (degenerative disc disease), lumbar (14) DIAB NITESH WO COMPL, TYPE I [JUVENILE TYPE], NOT UNCNTRLD (15) Diabetes mellitus (16) ESOPHAGEAL REFLUX (17) Fall (18) Fall due to ice or snow (19) Fall due to ice or snow (20) FAM HX-CHR RESP COND NEC (21) FAM HX-DIABETES MELLITUS (22) FAM HX-ISCHEM HEART DIS (23) FAMILY HISTORY OF OTHER CARDIOVASCULAR DISEASES (24) FAMILY HX-MALIGNANCY NOS (25) HERPES SIMPLEX NOS (26) HTN (hypertension) (27) Hyperglycemia (28) Hyperglycemia (29) HYPERTENSION NOS (30) Hypothermia (31) Left arm pain (32) Left shoulder pain (33) Left shoulder pain (34) Lumbar back pain (35) Neuropathy (36) Otitis media (37) Pain, dental (38) Pain, dental (39) PILONIDAL CYST W ABSCESS (40) Pneumonia (41) Right ankle sprain (42) Right knee sprain (43) Seizure disorder (44) Spondylolisthesis of lumbar region (45) TOBACCO USE DISORDER Family History FHx: cancer FHx: diabetes FHx: heart disease FHx: hypertension FHx: lung disease Social History Smoking Status: Current Every Day Smoker Alcohol Use: occasionally Drug Use: none Marital Status: Housing Status: lives with family Occupation Status: employed Current/Historical Medications Scheduled Atorvastatin (Lipitor), 10 MG PO HS Bupropion HCl (Bupropion HCl Sr), 100 MG PO QAM Fluticasone Furoate-Vilanterol (Breo Ellipta), 1 PUFF INH DAILY Gabapentin (Gabapentin), 600 MG PO TID Insulin Glargine (Lantus), 20 UNITS SC QAM Insulin Glargine (Lantus), 30 UNITS SC QPM Lisinopril (Lisinopril), 2.5 MG PO DAILY Meloxicam (Meloxicam), 15 MG PO DAILY Metformin Hcl (Glucophage), 1,000 MG PO BID Nortriptyline HCl (Nortriptyline HCl), 75 MG PO HS Sertraline (Zoloft), 50 MG PO DAILY Scheduled PRN Albuterol Hfa (Ventolin Hfa), 4 PUFFS INH TID PRN for SOB/Wheezing Clonazepam (Clonazepam), 0.5 MG PO TID PRN for Anxiety Naproxen (Aleve), 440 MG PO UD PRN for Pain Physical Exam Vital Signs Date Time Temp Pulse Resp B/P (MAP) Pulse Ox O2 Delivery O2 Flow Rate FiO2 12/29/16 11:21 36.7 88 20 123/82 95 Room Air Physical Exam VITAL SIGNS - Vital signs and nursing notes were reviewed. Stable. GENERAL -51-year-old female appearing her stated age who is in no acute distress. Communicates well with provider and answers questions appropriately. SKIN - Without rashes. Right hand is slightly swollen at the location of the base of the right second digit, with a small punctate red iris at the location of the right second metacarpal midshaft. No evidence of fracture. HEAD - NC/AT. EXTREMITIES - No clubbing or peripheral cyanosis. No pretibial edema present. She is neurovascularly intact in the right upper extremity. Limited range of motion secondary to pain. No underlying neurologic deficit. +5/5 strength noted in UE/LE bilaterally. Medical Decision & Procedures ER Provider Diagnostic Interpretation: RIGHT HAND MIN 3 VIEWS ROUTINE CLINICAL HISTORY: 51 years-old Female presenting with Trauma to dorsal aspect of right 2nd mid shaft metacarpal Right. TECHNIQUE: Frontal, oblique, and lateral views of the right hand were obtained. COMPARISON: 01/25/2016. FINDINGS: Post traumatic deformity of the tuft of the distal phalanx of the third finger unchanged. Post traumatic deformity of the distal radial metaphysis with associated superimposed secondary osteoarthritis. Old chronic ulnar Shiley fracture. No acute fracture or subluxation. IMPRESSION: Multiple posttraumatic deformities. No acute osseous injury. Electronically signed by: Randal Britton M.D. 12/29/2016 12:31 PM Dictated Date/Time: 12/29/2016 12:30 PM Medications Administered Medications (Trade) Dose Ordered Sig/Beatrice Route Start Time Stop Time Status Last Admin Dose Admin Acetaminophen (Tylenol Tab) 500 mg NOW STAT PO 12/29/16 11:37 12/29/16 11:39 DC 12/29/16 11:49 500 MG Medical Decision Patient was seen and evaluated as above. She presents to us today status post injury of the dorsal aspect of the right second metacarpal. 2 examination, there is a small erythematous region, no evidence of infection, or open fracture. The integument is intact. X-ray results as above. No acute fracture. I suspect she has a contusion, and the swelling is causing some of the nerve irritation. She'll be started with a metal splint, and is to follow- up with the approval Workmen's Compensation individual. She is to return with worsening. I informed her that I could not clear her for full activity at work , but she may resume her work, while wearing the splint. She was educated upon management, educated upon worrisome symptoms in which to return, had questions or discharge, and was discharged home in good condition. In evaluation treatment this patient the following differential diagnoses were entertained: Finger/hand fracture, contusion, among others. Impression Primary Impression: Hand contusion Departure Information Dispostion Home / Self-Care Condition GOOD Referrals No Doctor, Assigned (PCP) John Thibodeaux M.D. Patient Instructions [facility] Additional Instructions You have been treated in the Emergency Department for hand and finger pain. For pain I recommend continuing your regular medications, as well as potentially adding: - Regular strength (325mg/tab) Tylenol (acetaminophen) 2 tabs every 4-6 hours as needed. Do not exceed 12 tablets in a 24 hour period. Avoid taking more than 3 grams (3000 mg) of Tylenol per day. This includes any other sources of acetaminophen you may take on a regular basis. If this is a recent injury (<24 hrs), ice can be applied to the area of pain for the first 3 days to help decrease pain and inflammation. You have been provided the number for an Orthopaedic Surgeon. You should call this number as soon as possible to establish a follow-up visit from today's Emergency Department visit. Keep the brace/splint in place until evaluated by Orthopedics. Return to the Emergency Department if your current symptoms worsen despite treatment course outlined above, or if you develop any of the following symptoms : intractable pain despite aforementioned treatment course or new onset of numbness or tingling of the fingers. Please follow-up with the approval Workmen's Compensation individual regarding follow-up of your injury. Thank you for your time and please return with any new/concerning symptoms.
--- NOTE | 2016-12-29 12:33 | DIAGNOSTIC IMAGING REPORT ---
RIGHT HAND MIN 3 VIEWS ROUTINE CLINICAL HISTORY: 51 years-old Female presenting with Trauma to dorsal aspect of right 2nd mid shaft metacarpal Right. TECHNIQUE: Frontal, oblique, and lateral views of the right hand were obtained. COMPARISON: 01/25/2016. FINDINGS: Post traumatic deformity of the tuft of the distal phalanx of the third finger unchanged. Post traumatic deformity of the distal radial metaphysis with associated superimposed secondary osteoarthritis. Old chronic ulnar Shiley fracture. No acute fracture or subluxation. IMPRESSION: Multiple posttraumatic deformities. No acute osseous injury. Electronically signed by: Randal Britton M.D. 12/29/2016 12:31 PM Dictated Date/Time: 12/29/2016 12:30 PM
[2016-12-29 13:00] VITALS: BP 115/78; PULSE 72; O2SAT 95
== END 2016-12-29 13:28 | disposition home or self-care (01) ==
LOC: C.EDB 11:20 → C.EDD 13:28
DX: S60.221A Contusion of right hand, initial encounter (principal); W22.8XXA Striking against or struck by other objects, initial encounter; Y92.89 Other specified places as the place of occurrence of the external cause; Y99.0 Civilian activity done for income or pay; F10.20 Alcohol dependence, uncomplicated; J45.909 Unspecified asthma, uncomplicated; F31.9 Bipolar disorder, unspecified; J44.9 Chronic obstructive pulmonary disease, unspecified; E11.9 Type 2 diabetes mellitus without complications; K21.9 Gastro-esophageal reflux disease without esophagitis; I10 Essential (primary) hypertension; G40.909 Epilepsy, unspecified, not intractable, without status epilepticus; Z80.9 Family history of malignant neoplasm, unspecified; Z83.3 Family history of diabetes mellitus; Z82.49 Family history of ischemic heart disease and other diseases of the circulatory system; Z83.6 Family history of other diseases of the respiratory system; F17.210 Nicotine dependence, cigarettes, uncomplicated; Z79.4 Long term (current) use of insulin; Z79.899 Other long term (current) drug therapy

== ENCOUNTER 2017-03-18 18:57 | Emergency (ER) | payer OTHER ==
[~2017-03-18 18:57] MED LIST changes: +ATOR10TA82 PO; -ATOR10TA88 PO; +BSP/10 PO; -FLUT1INH INH; -INSDGI SC; +KLN1X PO; -KLN5X PO; -METF-384 PO; -NRN600 PO; +NRN800 PO; -OXYC-609 PO; -OXYC1TAB3 PO; +SERT50TA PO
[2017-03-18 19:02] VITALS: TEMP 36.7; Ht 154.9 cm
[2017-03-18] MEDS ORDERED: OXYCODONE HCL IR 5 MG TAB (IMMEDIATE RELEASE) PO STA (19:20)
[2017-03-18] MEDS ORDERED: METF-384 PO (19:30)
[2017-03-18] MEDS ORDERED: FLUT1INH INH (19:45)
[2017-03-18] MEDS ORDERED: ZLF/100 PO (19:56)
[2017-03-18] MEDS ORDERED: NRN600 PO (19:56)
[2017-03-18] MEDS ORDERED: ZOLP10TA6 PO (19:56)
[2017-03-18] MEDS ORDERED: SULF800T23 PO ×2 (19:59→21:30)
--- NOTE | 2017-03-18 20:53 | DIAGNOSTIC IMAGING REPORT ---
L EXTREMITY NONVASCULAR LIMITED CLINICAL HISTORY: L inner thigh cellulitis vs abscess abscess. Cellulitis. TECHNIQUE: Ultrasound COMPARISON STUDY: None FINDINGS: Ultrasonic evaluation of the left anterior thigh confirms presence of a complex collection measuring 2.4 x 1.8 x 2.2 cm. This appears represent a focal abscess or possibly combined with a small hematoma. Despite degree of surrounding soft tissue edema and/or cellulitis. IMPRESSION: 1. Geographic region of cellulitis and/or edema of the medial left thigh 2. A complex collection measuring 2.4 x 2.2 cm is identified centrally within this edematous region, and is most consistent with that of a focal abscess The above report was generated using voice recognition software. It may contain grammatical, syntax or spelling errors. Electronically signed by: Jerry Acuña M.D. 03/18/2017 8:51 PM Dictated Date/Time: 03/18/2017 8:49 PM
[2017-03-18] MEDS ORDERED: XYLOCAINE 1%/SOD BICARB 20 ML VIAL INFIL ONE (21:15)
[2017-03-18] MEDS ORDERED: CEPH500C PO (21:30)
[2017-03-18] MEDS ORDERED: CEPHALEXIN 500MG HOME PACK 1 EA BTL PO ONE (21:30)
[2017-03-18] MEDS ORDERED: OXYCODONE IR HOME PACK PO ONE (21:30)
--- NOTE | 2017-03-18 21:36 | EMERGENCY ROOM VISIT NOTE ---
History First contact with patient: 19:08 Chief Complaint: SKIN PROBLEM Stated Complaint: ABSCESS BOIL LEFT IN THIGH History of Present Illness The patient is a 51 year old female who presents to the Emergency Room with complaints of a painful infection in the left inner thigh. The patient reports that she has noticed swelling and discomfort over the past 2 weeks. She was seen at the [place] emergency department on 03/13, and underwent a CT scan that was normal. She was given a prescription for Bactrim DS antibiotics. The patient reports that the wound then spontaneously started to drain pus. She has been expressing the wound, and reports that the swelling significant improved until it started to swell again 3 days ago. She rates her discomfort a 10 out of 10. She denies any prior history of antibiotic resistant infections. She has had multiple abscesses in the past, but none in this area. She denies fevers or chills. Review of Systems 10 system review was performed and was negative except for pertinent positives and negatives as indicated in history of present illness Past Medical/Surgical History Medical Problems: (1) Abscess of buttock, right (2) Acute diverticulitis of intestine (3) ALCOH DEP NEC/NOS-UNSPEC (4) Alcohol intoxication (5) Alcohol intoxication (6) Alcohol intoxication (7) Altered level of consciousness (8) ASTHMA, UNSPECIFIED (9) BIPOLAR DISORDER, UNSPECIFIED (10) Chronic dental pain (11) Closed head injury (12) COPD (chronic obstructive pulmonary disease) (13) DDD (degenerative disc disease), lumbar (14) DIAB NITESH WO COMPL, TYPE I [JUVENILE TYPE], NOT UNCNTRLD (15) Diabetes mellitus (16) ESOPHAGEAL REFLUX (17) Fall (18) Fall due to ice or snow (19) Fall due to ice or snow (20) FAM HX-CHR RESP COND NEC (21) FAM HX-DIABETES MELLITUS (22) FAM HX-ISCHEM HEART DIS (23) FAMILY HISTORY OF OTHER CARDIOVASCULAR DISEASES (24) FAMILY HX-MALIGNANCY NOS (25) HERPES SIMPLEX NOS (26) HTN (hypertension) (27) Hyperglycemia (28) Hyperglycemia (29) HYPERTENSION NOS (30) Hypothermia (31) Left arm pain (32) Left shoulder pain (33) Left shoulder pain (34) Lumbar back pain (35) Neuropathy (36) Otitis media (37) Pain, dental (38) Pain, dental (39) PILONIDAL CYST W ABSCESS (40) Pneumonia (41) Right ankle sprain (42) Right knee sprain (43) Seizure disorder (44) Spondylolisthesis of lumbar region (45) TOBACCO USE DISORDER Family History FHx: cancer FHx: diabetes FHx: heart disease FHx: hypertension FHx: lung disease Social History Smoking Status: Current Every Day Smoker Alcohol Use: occasionally Drug Use: none Marital Status: Housing Status: lives with family Occupation Status: employed Current/Historical Medications Scheduled Atorvastatin (Lipitor), 10 MG PO HS Buspirone HCl (Buspirone HCl), 10 MG PO TID Cephalexin Monohydrate (Keflex), 500 MG PO QID Fluticasone Furoate-Vilanterol (Breo Ellipta), 1 PUFF INH DAILY Gabapentin (Gabapentin), 800 MG PO BID Gabapentin (Gabapentin), 600 MG PO BID Insulin Glargine (Lantus), 22 UNITS SC QAM Insulin Glargine (Lantus), 30 UNITS SC QPM Lisinopril (Lisinopril), 2.5 MG PO DAILY Metformin Hcl (Glucophage), 1,000 MG PO BID Nortriptyline HCl (Nortriptyline HCl), 75 MG PO HS Sertraline HCl (Sertraline HCl), 100 MG PO DAILY Sulfa/Trimethoprim (Bactrim Ds 800MG/160MG), 1 TAB PO BID Zolpidem Tartrate (Zolpidem Tartrate), 10 MG PO HS Scheduled PRN Albuterol Hfa (Ventolin Hfa), 4 PUFFS INH TID PRN for SOB/Wheezing Clonazepam (Clonazepam), 1 MG PO TID PRN for Anxiety Naproxen (Aleve), 440 MG PO UD PRN for Pain Physical Exam Vital Signs Date Time Temp Pulse Resp B/P (MAP) Pulse Ox O2 Delivery O2 Flow Rate FiO2 03/18/17 21:20 92 20 149/95 94 Room Air 03/18/17 19:31 90 16 109/77 94 Room Air 03/18/17 19:02 36.7 102 18 126/80 95 Room Air Physical Exam CONSTITUTIONAL: Healthy and well nourished. Alert and oriented X 3 with positive affect. Patient appears in moderate discomfort from pain. HEENT: Normocephalic, atraumatic. Pupils equal, round and reactive. NECK: Full active range of motion without discomfort. GASTROINTESTINAL: Bowel sounds present in all quadrants. Soft and nontender to palpation. MUSCULOSKELETAL: Full range of motion of all joints without discomfort. Negative logroll of the left hip. INTEGUMENTARY: With a female emergency vascular technician present, examination shows a walnut sized nodule of the left proximal inner thigh. There is no overriding erythema. No fluctuance noted. LYMPHATICS: No inguinal adenopathy noted. NEUROLOGIC: No focal neurologic deficits noted. Medical Decision & Procedures ER Provider Diagnostic Interpretation: Nonvascular ultrasound of the region shows an abscess as described in the following radiologist report: L EXTREMITY NONVASCULAR LIMITED CLINICAL HISTORY: L inner thigh cellulitis vs abscess abscess. Cellulitis. TECHNIQUE: Ultrasound COMPARISON STUDY: None FINDINGS: Ultrasonic evaluation of the left anterior thigh confirms presence of a complex collection measuring 2.4 x 1.8 x 2.2 cm. This appears represent a focal abscess or possibly combined with a small hematoma. Despite degree of surrounding soft tissue edema and/or cellulitis. IMPRESSION: 1. Geographic region of cellulitis and/or edema of the medial left thigh 2. A complex collection measuring 2.4 x 2.2 cm is identified centrally within this edematous region, and is most consistent with that of a focal abscess Medications Administered Medications (Trade) Dose Ordered Sig/Beatrice Route Start Time Stop Time Status Last Admin Dose Admin Oxycodone HCl (Roxicodone Immediate Rel Tab) 5 mg NOW STAT PO 03/18/17 19:20 03/18/17 19:22 DC 03/18/17 19:30 5 MG Procedure I&D procedure was performed under local anesthesia after receiving verbal consent from the patient. The area was prepped with iodine and allowed to dry. Sterile field was created. Using buffered 1% lidocaine without epinephrine, good local anesthesia was administered. Using a #11 scalpel, a 1 cm incision was made with copious purulent drainage. Cultures were collected. Needle drivers were used to further open underlying loculated areas with continued purulent expression. The abscess was then irrigated with normal saline prior to loose packing with 0.25 inch plain packing. A bacitracin dressing was applied. The patient tolerated the procedure well. ED Course Patient history and physical exam were performed. Nurse's notes were reviewed. Vital signs were reviewed and were normal. The patient is afebrile. The patient was administered OxyIR 5 mg for pain. Ultrasound of the left inner thigh shows an abscess. I&D procedure was performed under local anesthesia. Cultures were collected and ordered. Packing was loosely placed within the wound. The patient will be provided an additional 3 days of Bactrim DS antibiotics, along with a prescription for Keflex 500 mg 4 times a day 10 days. Review of medical records shows that the patient is currently on a treatment plan of no prescribe narcotics. Review of the [place] Prescription Drug Monitoring Program does not show any regular prescription. She did receive an opioid prescription from orthopedics less than one month ago. The patient will be provided a home pack of OxyIR 5 mg, and instructed to contact her PCP as needed for further pain management, and for wound follow-up in 48 hours. She was instructed to return to the emergency department for any progressively worsening pain, swelling or developing fever. The patient was happy with plan of care, and voiced understanding of all discharge instructions , rating her pain a 7 out of 10 at the conclusion of my exam. Medical Decision [place] Drug Monitoring Program Search Results: patient reviewed within database, see additional documentation Medication Reconcilliation Current Medication List: was personally reviewed by me Blood Pressure Screening Patient's blood pressure: Normal blood pressure Impression Primary Impression: Left inner thigh abscess Departure Information Prescriptions Sulfa/Trimethoprim (Bactrim Ds 800MG/160MG) Tab 1 TAB PO BID for 3 Days, #6 TAB Prov: Isaiah Reyes PA 03/18/17 Cephalexin Monohydrate (Keflex) 500 Mg Cap 500 MG PO QID for 10 Days, #40 CAP Prov: Isaiah Reyes PA 03/18/17 Referrals No Doctor, Assigned (PCP) Patient Instructions [facility]
[2017-03-18 21:47] VITALS: BP 136/87; PULSE 94; O2SAT 94
[2017-03-18] MEDS ORDERED: INSDGI SC ×2 (23:48)
== END 2017-03-18 21:49 | disposition home or self-care (01) ==
LOC: C.EDB 18:59
DX: L02.416 Cutaneous abscess of left lower limb (principal); E10.628 Type 1 diabetes mellitus with other skin complications; J45.909 Unspecified asthma, uncomplicated; F31.9 Bipolar disorder, unspecified; J44.9 Chronic obstructive pulmonary disease, unspecified; M51.36 Other intervertebral disc degeneration, lumbar region; I10 Essential (primary) hypertension; G40.909 Epilepsy, unspecified, not intractable, without status epilepticus; F17.200 Nicotine dependence, unspecified, uncomplicated; Z79.51 Long term (current) use of inhaled steroids; Z79.4 Long term (current) use of insulin; Z79.84 Long term (current) use of oral hypoglycemic drugs; Z80.9 Family history of malignant neoplasm, unspecified; Z83.3 Family history of diabetes mellitus; Z82.49 Family history of ischemic heart disease and other diseases of the circulatory system

== ENCOUNTER 2017-03-27 17:09 | Emergency (ER) | payer OTHER ==
[~2017-03-27] VITALS: Ht 152.4 cm; Wt 75.0 kg
[~2017-03-27 17:09] MED LIST changes: +CEPH500C PO; +FLUT1INH INH; +INSDGI SC; -MELO15TA4 PO; +METF-384 PO; +NRN600 PO; -SERT50TA PO; -WLLSR100 PO; +ZLF/100 PO; +ZOLP10TA6 PO
[2017-03-27 17:14] VITALS: TEMP 36.5; Ht 152.4 cm; Wt 75.0 kg
[2017-03-27] MEDS ORDERED: LIDOCAINE/EPINEPHRINE 1% 20 ML VIAL INFIL STA (17:36)
[2017-03-27] MEDS ORDERED: CEPHALEXIN MONOHYDRATE 250 MG CAP PO STA (17:36)
[2017-03-27] MEDS ORDERED: SULFAMETHOXAZOLE/TRIMETHOPRIM DS 800/160MG TAB PO STA (17:36)
[2017-03-27] MEDS ORDERED: HYDROmorphone INJ 1 MG/ML SYR IM STA (17:36)
--- NOTE | 2017-03-27 17:42 | EMERGENCY ROOM VISIT NOTE ---
History Report prepared by Rosanne: Arcenio Irwin Under the Supervision of: Dr. Antonio Duran M.D. First contact with patient: 17:15 Chief Complaint: WOUND INFECTION Stated Complaint: BOIL ON LEFT INNER THIGH History of Present Illness The patient is a 51 year old female who presents to the Emergency Room with complaints of a worsening wound on the left inner thigh beginning yesterday. The patient states she was evaluated by Dr. Lee and had the wound lanced open, and she was placed on Keflex and Bactrim. She reports she took the packing out of it today, and it closed again. The patient notes it is now hurting and filling up again. The patient denies any other symptom. Source of History: patient Onset: yesterday Position: leg (left, upper, inner) Quality: other (wound) Timing: worsening Note: The patient denies any other symptom. Review of Systems See HPI for pertinent positives & negatives. A total of 10 systems reviewed and were otherwise negative. Past Medical & Surgical Medical Problems: (1) Abscess of buttock, right (2) Acute diverticulitis of intestine (3) ALCOH DEP NEC/NOS-UNSPEC (4) Alcohol intoxication (5) Alcohol intoxication (6) Alcohol intoxication (7) Altered level of consciousness (8) ASTHMA, UNSPECIFIED (9) BIPOLAR DISORDER, UNSPECIFIED (10) Chronic dental pain (11) Closed head injury (12) COPD (chronic obstructive pulmonary disease) (13) DDD (degenerative disc disease), lumbar (14) DIAB NITESH WO COMPL, TYPE I [JUVENILE TYPE], NOT UNCNTRLD (15) Diabetes mellitus (16) ESOPHAGEAL REFLUX (17) Fall (18) Fall due to ice or snow (19) Fall due to ice or snow (20) FAM HX-CHR RESP COND NEC (21) FAM HX-DIABETES MELLITUS (22) FAM HX-ISCHEM HEART DIS (23) FAMILY HISTORY OF OTHER CARDIOVASCULAR DISEASES (24) FAMILY HX-MALIGNANCY NOS (25) HERPES SIMPLEX NOS (26) HTN (hypertension) (27) Hyperglycemia (28) Hyperglycemia (29) HYPERTENSION NOS (30) Hypothermia (31) Left arm pain (32) Left shoulder pain (33) Left shoulder pain (34) Lumbar back pain (35) Neuropathy (36) Otitis media (37) Pain, dental (38) Pain, dental (39) PILONIDAL CYST W ABSCESS (40) Pneumonia (41) Right ankle sprain (42) Right knee sprain (43) Seizure disorder (44) Spondylolisthesis of lumbar region (45) TOBACCO USE DISORDER Family History FHx: cancer FHx: diabetes FHx: heart disease FHx: hypertension FHx: lung disease Social History Smoking Status: Current Every Day Smoker Alcohol Use: occasionally Drug Use: none Marital Status: Housing Status: lives with family Occupation Status: employed Current/Historical Medications Scheduled Atorvastatin (Lipitor), 10 MG PO HS Buspirone HCl (Buspirone HCl), 10 MG PO TID Cephalexin Monohydrate (Keflex), 500 MG PO QID Cephalexin Monohydrate (Keflex), 500 MG PO QID Fluticasone Furoate-Vilanterol (Breo Ellipta), 1 PUFF INH QAM Gabapentin (Gabapentin), 800 MG PO BID Gabapentin (Gabapentin), 600 MG PO BID Insulin Glargine (Lantus), 22 UNITS SC QAM Insulin Glargine (Lantus), 30 UNITS SC QPM Lisinopril (Lisinopril), 2.5 MG PO QAM Metformin Hcl (Glucophage), 1,000 MG PO BID Nortriptyline HCl (Nortriptyline HCl), 75 MG PO HS Sertraline HCl (Sertraline HCl), 100 MG PO QAM Sulfa/Trimethoprim (Bactrim Ds 800MG/160MG), 1 TAB PO BID Zolpidem Tartrate (Zolpidem Tartrate), 10 MG PO HS Scheduled PRN Albuterol Hfa (Ventolin Hfa), 4 PUFFS INH TID PRN for SOB/Wheezing Clonazepam (Clonazepam), 1 MG PO TID PRN for Anxiety Naproxen (Aleve), 440 MG PO UD PRN for Pain Allergies Coded Allergies: Mushroom (Verified Allergy, Severe, THROAT SWELLS. CANT BREATHE, 03/27/17 ) Hydrocodone (Verified Allergy, Unknown, SHORTNESS OF BREATH, 03/27/17) Meperidine (Verified Allergy, Unknown, VOMIT, 03/27/17) Morphine (Verified Allergy, Unknown, Vomiting, 03/27/17) Ketorolac (Verified Adverse Reaction, Intermediate, GI SYMPTOMS, 03/27/17) Tramadol (Verified Adverse Reaction, Unknown, vomiting, 03/27/17) Physical Exam Vital Signs Date Time Temp Pulse Resp B/P (MAP) Pulse Ox O2 Delivery O2 Flow Rate FiO2 03/27/17 18:22 96 17 152/94 94 03/27/17 17:14 36.5 106 16 127/79 94 Room Air Physical Exam GENERAL: Patient is a healthy-appearing well-nourished 51 year old female HEAD: Normocephalic atraumatic EYES: Ocular movements intact pupils equal and react to light OROPHARYNX mucous membranes are moist no exudates present no erythema or edema present NECK: Supple no nuchal rigidity CHEST: Good equal expansion LUNGS: Clear and equal to auscultation CARDIAC: Normal S1 and S2 ABDOMEN: Soft nontender no guarding BACK: No CVA tenderness EXTREMITIES: No pain upon palpation normal muscle strength in all groups no clubbing cyanosis or edema. Luis sized cyst to the left groin area. NEURO: Patient is following commands and answering questions appropriately. Alert and oriented x3 Cranial Nerves 2-12 grossly intact Medical Decision & Procedures Medications Administered Medications (Trade) Dose Ordered Sig/Beatrice Route Start Time Stop Time Status Last Admin Dose Admin Lidocaine/ Epinephrine (Xylocaine/Epine 1% Inj) 20 ml ONE STAT INFIL 03/27/17 17:36 03/27/17 17:39 DC 03/27/17 17:45 20 ML Hydromorphone HCl (Dilaudid Inj) 1 mg NOW STAT IM 03/27/17 17:36 03/27/17 17:39 DC 03/27/17 17:48 1 MG Cephalexin Monohydrate (Keflex Cap) 500 mg NOW STAT PO 03/27/17 17:36 03/27/17 17:39 DC 03/27/17 17:45 500 MG Trimethoprim/ Sulfamethoxazole (Septra Ds 800/ 160MG Tab) 1 tab NOW STAT PO 03/27/17 17:36 03/27/17 17:39 DC 03/27/17 17:45 1 TAB Procedure Incision & Drainage Indication: Abscess. Location: left thigh Verbal consent was obtained after the risks and benefits were explained, including but not limited to bleeding, scarring, infection, pain, and bone/joint /nerve damage. At this time, the risks of the procedure are less than the risks of NOT performing the procedure. A time out was taken and the correct patient and site identified. The skin was prepped with betadine and a sterile field set. The wound was anesthetized with 4 ml of 1% lidocaine without epinephrine. The abscess cavity was entered with a number 11 blade and bloody material expressed. Copious irrigation was performed using saline. The wound was explored for foreign bodies and none found. Debridement was not performed. Packing placed and a sterile dressing applied. Detailed wound care instructions and signs and symptoms of worsening infection reviewed with the patient. No complications and the patient tolerated the procedure well. ED Course 1733: Past medical records reviewed. The patient was evaluated in room B03B. A complete history and physical examination was performed. 173: Ordered Trimethoprim/Sulfamethoxazole 1 tab PO, Keflex Cap 500 mg, Dilaudid Inj 1mg IM, Lidocaine/Epinephrine 20 ml INFIL 174: I reevaluated the patient and performed an I&D. Please refer to the procedure note for details. 1759: Upon reexamination the patient is resting. I discussed results and treatment plan with the patient. She verbalizes agreement and understanding. The patient is ready for discharge. Medical Decision The patient is a 51 year old female who presents to the ED with complaints of a worsening wound to the left thigh. Differential diagnoses include: abscess, cellulitis, cystitis. The exam is inconsistent with Oscar's gangrene. This is a 51-year-old female who presents emergency department complaining of cyst to the left thigh. This was opened and drained as above. There did not appear to be a large amount of infection drained from this wound. I will however place the patient on Keflex and Bactrim and stressed the need for follow -up with surgery. Patient was given a shot of Dilaudid for the pain in the emergency department. Patient was in agreement with the treatment plan. Impression Primary Impression: Cyst Scribe Attestation The scribe's documentation has been prepared under my direction and personally reviewed by me in its entirety. I confirm that the note above accurately reflects all work, treatment, procedures, and medical decision making performed by me. Departure Information Dispostion Home / Self-Care Prescriptions Sulfa/Trimethoprim (Bactrim Ds 800MG/160MG) Tab 1 TAB PO BID for 10 Days, #20 TAB Prov: Antonio Duran MD 03/27/17 Cephalexin Monohydrate (KEFLEX) 500 Mg Cap 500 MG PO QID for 10 Days, #40 CAP Prov: Antonio Duran MD 03/27/17 Referrals Dickson Jones, DO Forms HOME CARE DOCUMENTATION FORM, IMPORTANT VISIT INFORMATION, WORK / SCHOOL INSTRUCTIONS Patient Instructions My [facility] Additional Instructions Need follow up with DR Urban's office You received narcotic or benzodiazepene medication while in the emergency room today. This is an addictive medication that may cause drowziness as well as constipation. Do not drive, operate heavy machinery, or drink alcohol under the influence of this medication. Take 600 mg Ibuprofen every 6 hours Culture results are usually available in approx 48 hours You have been examined and treated today on an emergency basis only. This is not a substitute for, or an effort to provide, complete comprehensive medical care. It is impossible to recognize and treat all injuries or illnesses in a single emergency department visit. It is therefore important that you follow up closely with your PCP. Call as soon as possible for an appointment. Thank you for your time and consideration. I look forward to speaking with you again soon. Please don't hesitate to call us if you have any questions.
[2017-03-27] MEDS ORDERED: SULF800T23 PO (17:59)
[2017-03-27] MEDS ORDERED: CEPH500C2 PO (17:59)
[2017-03-27 18:22] VITALS: BP 152/94; PULSE 96; O2SAT 94
== END 2017-03-27 18:23 | disposition home or self-care (01) ==
LOC: C.EDB 17:11
DX: L72.9 Follicular cyst of the skin and subcutaneous tissue, unspecified (principal); J45.909 Unspecified asthma, uncomplicated; J44.9 Chronic obstructive pulmonary disease, unspecified; G40.909 Epilepsy, unspecified, not intractable, without status epilepticus; E10.40 Type 1 diabetes mellitus with diabetic neuropathy, unspecified; I10 Essential (primary) hypertension; F17.200 Nicotine dependence, unspecified, uncomplicated; Z91.81 History of falling; Z87.01 Personal history of pneumonia (recurrent); Z83.3 Family history of diabetes mellitus; Z82.49 Family history of ischemic heart disease and other diseases of the circulatory system; Z79.84 Long term (current) use of oral hypoglycemic drugs; Z79.899 Other long term (current) drug therapy

== ENCOUNTER 2017-07-14 17:16 | Emergency (ER) | payer OTHER ==
[~2017-07-14] VITALS: Ht 157.5 cm; Wt 78.9 kg
[~2017-07-14 17:16] MED LIST changes: -CEPH500C PO
[2017-07-14 17:20] VITALS: BP 130/67; PULSE 86; TEMP 36.7; O2SAT 97; Ht 157.5 cm; Wt 78.9 kg
--- NOTE | 2017-07-14 18:36 | DIAGNOSTIC IMAGING REPORT ---
THORACIC SPINE 3 VIEWS ROUTINE CLINICAL HISTORY: MID BACK PAIN AFTER A FALL COMPARISON STUDY: Thoracic spine radiographs February 03, [address] November 19, 2012. FINDINGS: Alignment of the thoracic spine is anatomic. No acute fractures identified. Disc spaces are preserved. There is mild osteophytosis of the thoracic spine. IMPRESSION: 1. No acute thoracic spine fracture or subluxation. 2. Mild osteophytosis of the thoracic spine. Electronically signed by: Pernell Owens M.D. 07/14/2017 6:34 PM Dictated Date/Time: 07/14/2017 6:31 PM
--- NOTE | 2017-07-14 18:42 | DIAGNOSTIC IMAGING REPORT ---
R RIBS UNILATERAL WITH PA CHEST CLINICAL HISTORY: RIGHT RIB PAIN AFTER A FALL COMPARISON STUDY: Chest radiograph December 31, 2015. FINDINGS: There is no pneumothorax or pleural effusion. Cardiac mediastinal silhouette is normal. There is no evidence for pulmonary edema. Apparent lower lung interstitial thickening is likely chronic. No acute right rib fractures are identified. Several old right rib fractures are present. IMPRESSION: 1. No pneumothorax. 2. No acute right rib fractures. 3. Several old right rib fractures. Electronically signed by: Pernell Owens M.D. 07/14/2017 6:40 PM Dictated Date/Time: 07/14/2017 6:37 PM
--- NOTE | 2017-07-14 19:07 | EMERGENCY ROOM VISIT NOTE ---
ED Visit Note First contact with patient: 17:26 CHIEF COMPLAINT: Right rib injury this afternoon HISTORY OF PRESENT ILLNESS: Patient is a 51-year-old white female who presents emergency department for evaluation of right rib pain after she fell getting out of her vehicle about 5 hours ago. She reports that she stepped out of her vehicle on her snow-covered driveway and slipped. She hit the right side of her ribs on the running board of her vehicle. She did not strike her head or lose consciousness. She rates her pain a 9/10. She did not take any medications for discomfort. There is increased pain with deep breathing or coughing. Attempting to sit up from a lying position is painful. Denies shortness of breath or coughing up blood. She reports that she was not going to come to the emergency department, but a family member was bringing their child up and she decided to come with them. REVIEW OF SYSTEMS: Review of systems as per HPI. All other systems reviewed were negative. At least 6 systems reviewed. PMH: Electronic medical records are reviewed and summarized as above/below. See Problem List. SOCIAL HISTORY: Patient lives at home. Smoker. Positive alcohol. PHYSICAL EXAM: Vital Signs: Reviewed Nurse's notes. GENERAL: Patient is an uncomfortable appearing 51-year-old white female who is awake and alert and sitting semiupright on the gurney, holding her right ribs. Chest: There are no signs of deformities, contusions or abrasions to the anterior chest wall. There is no obvious crepitus or paradoxical chest rise. Over the right mid to lower ribs, she has tenderness to palpation, primarily in the mid axillary line. There is no fracture crepitus or flail segment. Skin is intact without ecchymosis or abrasions. Heart: Regular rate, and regular rhythm. Lungs: Breath sounds equal and clear to auscultation without wheezes, rales, or rhonchi heard. Abdomen: Soft, completely nontender, nondistended, with good bowel sounds. There is no sign of trauma such as contusions, abrasions or penetrations. There is no right upper quadrant pain to palpation. There is no guarding, rigidity, or rebound noted. Neuro: The patient is awake and alert and easily able to follow commands. Muscle strength is 5 out of 5 in all 4 extremities. Otherwise, neuro exam is unremarkable. Back: The entire cervical, thoracic, lumbar, and sacral spine were palpated. No discomfort over the cervical and lumbar spine. She does have some discomfort in the mid to lower thoracic spine region. There are no obvious step -offs or deformities noted. There are no obvious signs of trauma such as contusions abrasions penetrations noted to the back. EMERGENCY DEPARTMENT COURSE: The patient was seen and assessed as above. Thoracic spine and right rib x-rays were obtained. There was no evidence for acute fracture or bony abnormality. Old right rib fractures were noted. Port of care measures were discussed. The patient was issued an incentive spirometer as she is a heavy smoker. Differential diagnoses entertained included rib fracture, rib contusion, intercostal neuritis, pneumothorax, pulmonary contusion, thoracic spine fracture, among others. She does not have any right upper quadrant pain to suspect intra-abdominal pathology/trauma. Medication reconciliation: I attest that I have personally reviewed the patient' s current medication list. Blood pressure screening : Patient was found to have normal blood pressure on screening and does not require follow-up. R RIBS UNILATERAL WITH PA CHEST CLINICAL HISTORY: RIGHT RIB PAIN AFTER A FALL COMPARISON STUDY: Chest radiograph December 31, 2015. FINDINGS: There is no pneumothorax or pleural effusion. Cardiac mediastinal silhouette is normal. There is no evidence for pulmonary edema. Apparent lower lung interstitial thickening is likely chronic. No acute right rib fractures are identified. Several old right rib fractures are present. IMPRESSION: 1. No pneumothorax. 2. No acute right rib fractures. 3. Several old right rib fractures. THORACIC SPINE 3 VIEWS ROUTINE CLINICAL HISTORY: MID BACK PAIN AFTER A FALL COMPARISON STUDY: Thoracic spine radiographs February 03, [address] November 19, 2012. FINDINGS: Alignment of the thoracic spine is anatomic. No acute fractures identified. Disc spaces are preserved. There is mild osteophytosis of the thoracic spine. IMPRESSION: 1. No acute thoracic spine fracture or subluxation. 2. Mild osteophytosis of the thoracic spine. Problem List Medical Problems: (1) Abscess of buttock, right Status: Resolved (2) ALCOH DEP NEC/NOS-UNSPEC Status: Chronic (3) Alcohol intoxication Status: Resolved (4) Alcohol intoxication Status: Resolved (5) Alcohol intoxication Status: Resolved (6) Altered level of consciousness Status: Resolved (7) ASTHMA, UNSPECIFIED Status: Chronic (8) BIPOLAR DISORDER, UNSPECIFIED Status: Chronic (9) Chronic dental pain Status: Chronic (10) Closed head injury Status: Resolved (11) COPD (chronic obstructive pulmonary disease) Status: Chronic (12) DDD (degenerative disc disease), lumbar Status: Chronic (13) DIAB NITESH WO COMPL, TYPE I [JUVENILE TYPE], NOT UNCNTRLD Status: Chronic (14) Diabetes mellitus Status: Chronic (15) ESOPHAGEAL REFLUX Status: Chronic (16) Fall Status: Resolved (17) Fall due to ice or snow Status: Resolved (18) Fall due to ice or snow Status: Resolved (19) FAM HX-CHR RESP COND NEC Status: Chronic (20) FAM HX-DIABETES MELLITUS Status: Chronic (21) FAM HX-ISCHEM HEART DIS Status: Chronic (22) FAMILY HISTORY OF OTHER CARDIOVASCULAR DISEASES Status: Chronic (23) FAMILY HX-MALIGNANCY NOS Status: Chronic (24) HERPES SIMPLEX NOS Status: Chronic (25) HTN (hypertension) Status: Chronic (26) Hyperglycemia Status: Resolved (27) Hyperglycemia Status: Resolved (28) HYPERTENSION NOS Status: Chronic (29) Hypothermia Status: Resolved (30) Left arm pain Status: Resolved (31) Left shoulder pain Status: Resolved (32) Left shoulder pain Status: Resolved (33) Lumbar back pain Status: Chronic (34) Neuropathy Status: Chronic (35) Otitis media Status: Resolved (36) Pain, dental Status: Resolved (37) Pain, dental Status: Resolved (38) PILONIDAL CYST W ABSCESS Status: Chronic (39) Right ankle sprain Status: Resolved (40) Right knee sprain Status: Resolved (41) Seizure disorder Status: Chronic (42) Spondylolisthesis of lumbar region Status: Chronic (43) TOBACCO USE DISORDER Status: Chronic Current/Historical Medications Scheduled Atorvastatin (Lipitor), 10 MG PO HS Buspirone HCl (Buspirone HCl), 10 MG PO TID Fluticasone Furoate-Vilanterol (Breo Ellipta), 1 PUFF INH QAM Gabapentin (Gabapentin), 800 MG PO BID Gabapentin (Gabapentin), 600 MG PO BID Insulin Glargine (Lantus), 22 UNITS SC QAM Insulin Glargine (Lantus), 30 UNITS SC QPM Lisinopril (Lisinopril), 2.5 MG PO QAM Metformin Hcl (Glucophage), 1,000 MG PO BID Nortriptyline HCl (Nortriptyline HCl), 75 MG PO HS Sertraline HCl (Sertraline HCl), 100 MG PO QAM Zolpidem Tartrate (Zolpidem Tartrate), 10 MG PO HS Scheduled PRN Albuterol Hfa (Ventolin Hfa), 4 PUFFS INH TID PRN for SOB/Wheezing Clonazepam (Clonazepam), 1 MG PO TID PRN for Anxiety Naproxen (Aleve), 440 MG PO UD PRN for Pain Allergies Coded Allergies: Mushroom (Verified Allergy, Severe, THROAT SWELLS. CANT BREATHE, 03/27/17 ) Hydrocodone (Verified Allergy, Unknown, SHORTNESS OF BREATH, 03/27/17) Meperidine (Verified Allergy, Unknown, VOMIT, 03/27/17) Morphine (Verified Allergy, Unknown, Vomiting, 03/27/17) Ketorolac (Verified Adverse Reaction, Intermediate, GI SYMPTOMS, 03/27/17) Tramadol (Verified Adverse Reaction, Unknown, vomiting, 03/27/17) Vital Signs Date Time Temp Pulse Resp B/P (MAP) Pulse Ox O2 Delivery O2 Flow Rate FiO2 07/14/17 17:20 36.7 86 20 130/67 97 Room Air Departure Information Impression Primary Impression: Rib injury Additional Impression: Fall Referrals No Doctor, Assigned (PCP) Patient Instructions [facility] Additional Instructions Apply ice to ribs for swelling and pain. Do deep breathing/incentive spirometer and coughing exercises as instructed. Limit activities until ribs heal. Ibuprofen(Motrin, Advil) may be used for fever or pain. Use 600mg every six hours as needed. Take with food. Avoid using more than 2400mg in a 24 hour period. Do not use 2400mg per day for more than three consecutive days without physician direction. Prolonged inappropriate use can lead to stomach upset or ulcers. (AND/OR) Acetaminophen(Tylenol) may be used for fever or pain. Use 1000mg every six hours as needed. Avoid using more than 3000mg in a 24 hour period. Follow-up family doctor as needed. Problem Qualifiers
== END 2017-07-14 19:19 | disposition home or self-care (01) ==
LOC: C.EDB 17:17 → C.EDD 19:19
DX: S29.9XXA Unspecified injury of thorax, initial encounter (principal); W00.9XXA Unspecified fall due to ice and snow, initial encounter; J44.9 Chronic obstructive pulmonary disease, unspecified; E11.9 Type 2 diabetes mellitus without complications; I10 Essential (primary) hypertension; F31.9 Bipolar disorder, unspecified; F17.200 Nicotine dependence, unspecified, uncomplicated; Z79.4 Long term (current) use of insulin; Z79.51 Long term (current) use of inhaled steroids; Z91.018 Allergy to other foods; Z88.6 Allergy status to analgesic agent; Z82.49 Family history of ischemic heart disease and other diseases of the circulatory system; Z83.6 Family history of other diseases of the respiratory system

== ENCOUNTER 2017-11-20 08:35 | Emergency (ER) | payer OTHER ==
[~2017-11-20] VITALS: Ht 157.5 cm; Wt 74.2 kg
[~2017-11-20 08:35] MED LIST changes: +CEPH500C2 PO
[2017-11-20 08:37] VITALS: TEMP 36.6; Ht 157.5 cm; Wt 74.2 kg
--- NOTE | 2017-11-20 08:57 | EMERGENCY ROOM VISIT NOTE ---
History Report prepared by Rosanne: Dawit Deleon Under the Supervision of: Dr. Don Mejia M.D. First contact with patient: 08:46 Chief Complaint: NECK PAIN Stated Complaint: NECK AND SHOULDER PAIN History of Present Illness The patient is a 52 year old female who presents to the Emergency Room with complaints of persistent neck pain that began 2 days ago. The patient notes that the pain is radiating down the left side of her neck into the left shoulder. She also describes a "tingly" sensation in the left arm as well as a headache. The pain is worsened with ROM of the neck. The patient notes that she has been told that she has a "crushed vertebrae" in her neck in the past, but has not had any surgeries. She denies any chest pain or shortness of breath. Source of History: patient Onset: 2 days ago Position: neck Quality: other ("tingling" in the neck) Timing: other (persistent) Modifying Factors (Worsening): other (ROM of neck) Associated Symptoms: + chest pain, + SOB Review of Systems See HPI for pertinent positives & negatives. A total of 10 systems reviewed and were otherwise negative. Past Medical & Surgical Medical Problems: (1) Abscess of buttock, right (2) Acute diverticulitis of intestine (3) ALCOH DEP NEC/NOS-UNSPEC (4) Alcohol intoxication (5) Alcohol intoxication (6) Alcohol intoxication (7) Altered level of consciousness (8) ASTHMA, UNSPECIFIED (9) BIPOLAR DISORDER, UNSPECIFIED (10) Chronic dental pain (11) Closed head injury (12) COPD (chronic obstructive pulmonary disease) (13) DDD (degenerative disc disease), lumbar (14) DIAB NITESH WO COMPL, TYPE I [JUVENILE TYPE], NOT UNCNTRLD (15) Diabetes mellitus (16) ESOPHAGEAL REFLUX (17) Fall (18) Fall due to ice or snow (19) Fall due to ice or snow (20) FAM HX-CHR RESP COND NEC (21) FAM HX-DIABETES MELLITUS (22) FAM HX-ISCHEM HEART DIS (23) FAMILY HISTORY OF OTHER CARDIOVASCULAR DISEASES (24) FAMILY HX-MALIGNANCY NOS (25) HERPES SIMPLEX NOS (26) HTN (hypertension) (27) Hyperglycemia (28) Hyperglycemia (29) HYPERTENSION NOS (30) Hypothermia (31) Left arm pain (32) Left shoulder pain (33) Left shoulder pain (34) Lumbar back pain (35) Neuropathy (36) Otitis media (37) Pain, dental (38) Pain, dental (39) PILONIDAL CYST W ABSCESS (40) Pneumonia (41) Right ankle sprain (42) Right knee sprain (43) Seizure disorder (44) Spondylolisthesis of lumbar region (45) TOBACCO USE DISORDER Old medical records were reviewed. Nurse's notes were reviewed and I agree with. Family History FHx: cancer FHx: diabetes FHx: heart disease FHx: hypertension FHx: lung disease Social History Smoking Status: Current Every Day Smoker Alcohol Use: occasionally Drug Use: none Marital Status: Housing Status: lives with family Occupation Status: employed Current/Historical Medications Scheduled Alprazolam (Alprazolam), 0.5 MG PO TID Atorvastatin (Lipitor), 10 MG PO HS Buspirone HCl (Buspirone HCl), 10 MG PO TID Fluticasone Furoate-Vilanterol (Breo Ellipta), 1 PUFF INH QAM Gabapentin (Gabapentin), 800 MG PO BID Gabapentin (Gabapentin), 600 MG PO BID Insulin Glargine (Lantus), 22 UNITS SC QAM Insulin Glargine (Lantus), 30 UNITS SC QPM Lisinopril (Lisinopril), 2.5 MG PO QAM Metformin Hcl (Glucophage), 1,000 MG PO BID Methylprednisolone (Medrol Dosepak), 0 PO DAILY Nortriptyline HCl (Nortriptyline HCl), 75 MG PO HS Sertraline HCl (Sertraline HCl), 100 MG PO QAM Zolpidem Tartrate (Zolpidem Tartrate), 10 MG PO HS Scheduled PRN Albuterol Hfa (Ventolin Hfa), 4 PUFFS INH TID PRN for SOB/Wheezing Naproxen (Aleve), 440 MG PO UD PRN for Pain Oxycodone Immediate Rel Tab (Roxicodone Ir), 1 TAB PO Q6 PRN for Severe Pain Allergies Coded Allergies: Mushroom (Verified Allergy, Severe, THROAT SWELLS. CANT BREATHE, 11/20/17) Hydrocodone (Verified Allergy, Unknown, SHORTNESS OF BREATH, 11/20/17) Meperidine (Verified Allergy, Unknown, VOMIT, 11/20/17) Morphine (Verified Allergy, Unknown, Vomiting, 11/20/17) Ketorolac (Verified Adverse Reaction, Intermediate, GI SYMPTOMS, 11/20/17) Tramadol (Verified Adverse Reaction, Unknown, vomiting, 11/20/17) Physical Exam Vital Signs Date Time Temp Pulse Resp B/P (MAP) Pulse Ox O2 Delivery O2 Flow Rate FiO2 11/20/17 10:19 83 18 122/78 92 Room Air 11/20/17 09:50 78 18 120/75 92 Room Air 11/20/17 08:53 84 11/20/17 08:37 36.6 92 20 117/76 90 Room Air Physical Exam General: Chronically-ill appearing, non-acutely ill appearing middle age female in no acute distress. HEENT: Normal cephalic atraumatic. Pupils are equal round and reactive to light. Extraocular movements are intact. Oropharynx is pink with moist mucous membranes. No swelling of the mouth lips or tongue. Neck: Supple with a midline trachea. The neck is freely mobile with ROM, negative Brudzinski sign. There is pain on palpation of the left trapezius area. No meningeal signs or stiffness, no JVD or bruits. No Stridor. Chest: Clear to auscultation bilaterally. No wheezes or rhonchi. No increased work of breathing. Heart: regular rate and rhythm. Abdomen: Soft nontender, nondistended without rebound guarding or rigidity. Extremities: No cyanosis clubbing or edema. No calf tenderness or assymetry Spine/Back. Non tender to palpation. No CVA tenderness Skin: Good turgor without rashes. Neurologic exam: Cranial nerves two through 12 are intact. Motor and sensation are intact and symmetrical throughout. Medical Decision & Procedures ER Provider Diagnostic Interpretation: Radiology results as stated below per my review and radiologist interpretation: CERVICAL SPINE CT CT DOSE: 817.59 mGy.cm HISTORY: neck pain TECHNIQUE: Multiaxial CT images of the cervical spine were performed and reformatted in the sagittal and coronal plane without the use of contrast. A dose lowering technique was utilized adhering to the principles of ALARA. COMPARISON: Chest CTA 06/18/2013. FINDINGS: Mild emphysema. No pneumothorax. Best seen on image 491 there are biapical irregular nodules. A 4 mm nodule within the right lung apex remain stable compared to 2013. Therefore, this is considered to be benign. Additional 4 mm nodule within the right lung apex is similar to the 03/22/2016 examination. 5 mm nodule within the left lung apex is also similar to the 2016 examination. However, this is new from the 2014 examination. Multinodular and mildly enlarged thyroid gland is again noted. Dominant nodule in the lower pole measures 1 cm. No fracture or subluxation within the cervical spine. Mild disc space narrowing at C5-C6 and C6-C7 with endplate osteophytes. IMPRESSION: 1. No fractures within the cervical spine. 2. Mild degenerative disc disease at C5-C6 and C6-C7. 3. Biapical irregular subcentimeter nodules as described above. A six-month chest CT follow up is recommended to ensure stability. Electronically signed by: Iggy Arango M.D. 11/20/2017 10:05 AM Dictated Date/Time: 11/20/2017 9:56 AM CHEST ONE VIEW PORTABLE CLINICAL HISTORY: 52 years-old Female presenting with CHEST PAIN. TECHNIQUE: Portable upright AP view of the chest was obtained. COMPARISON: 12/31/2015. FINDINGS: Cardiomediastinal silhouette normal. No focal opacity. No large effusion or pneumothorax. Stippled calcification in the left humeral head may suggest a chondroid lesion. This is unchanged at least since 2016. Upper abdomen normal. IMPRESSION: 1. No acute cardiopulmonary disease. Electronically signed by: Randal Britton M.D. 11/20/2017 9:46 AM Dictated Date/Time: 11/20/2017 9:45 AM HEAD WITHOUT CONTRAST (CT) CLINICAL HISTORY: 52 years-old Female presenting with headache, neck pain beginning yesterday morning along the right side of the neck radiating to the left shoulder. TECHNIQUE: Multidetector CT imaging of the head was performed without the use of intravenous contrast. IV contrast: None. A dose lowering technique was used consistent with the principles of ALARA (as low as reasonably achievable). COMPARISON: 06/18/2013. CT DOSE (mGy.cm): The estimated cumulative dose is 817.59. 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 The patient is edentulous. Ventricles and sulci normal in size. Brain parenchyma normal in appearance with preserved webb-white differentiation. No mass effect or midline shift. No hemorrhage or acute territorial infarct. No extra-axial fluid collection. Paranasal sinuses and mastoid air cells clear. Calvarium intact. IMPRESSION: 1. No acute intracranial abnormality. Electronically signed by: Randal Britton M.D. 11/20/2017 9:56 AM Dictated Date/Time: 11/20/2017 9:53 AM Laboratory Results 11/20/17 09:19 Red Blood Count 4.98, Mean Corpuscular Volume 93.2, Mean Corpuscular Hemoglobin 31.7, Mean Corpuscular Hemoglobin Concent 34.1, Mean Platelet Volume 11.6, Neutrophils (%) (Auto) 63.2, Lymphocytes (%) (Auto) 28.5, Monocytes (%) (Auto) 6.0, Eosinophils (%) (Auto) 1.8, Basophils (%) (Auto) 0.2, Neutrophils # (Auto) 6.07, Lymphocytes # (Auto) 2.74, Monocytes # (Auto) 0.58, Eosinophils # (Auto) 0.17, Basophils # (Auto) 0.02 11/20/17 09:19 Test 11/20/17 09:19 11/20/17 09:24 White Blood Count 9.61 K/uL (4.8-10.8) Red Blood Count 4.98 M/uL (4.2-5.4) Hemoglobin 15.8 g/dL (12.0-16.0) Hematocrit 46.4 % (37-47) Mean Corpuscular Volume 93.2 fL (80-100) Mean Corpuscular Hemoglobin 31.7 pg (25-34) Mean Corpuscular Hemoglobin Concent 34.1 g/dl (32-36) Platelet Count 200 K/uL (130-400) Mean Platelet Volume 11.6 fL (7.4-10.4) Neutrophils (%) (Auto) 63.2 % Lymphocytes (%) (Auto) 28.5 % Monocytes (%) (Auto) 6.0 % Eosinophils (%) (Auto) 1.8 % Basophils (%) (Auto) 0.2 % Neutrophils # (Auto) 6.07 K/uL (1.4-6.5) Lymphocytes # (Auto) 2.74 K/uL (1.2-3.4) Monocytes # (Auto) 0.58 K/uL (0.11-0.59) Eosinophils # (Auto) 0.17 K/uL (0-0.5) Basophils # (Auto) 0.02 K/uL (0-0.2) RDW Standard Deviation 42.3 fL (36.4-46.3) RDW Coefficient of Variation 12.5 % (11.5-14.5) Immature Granulocyte % (Auto) 0.3 % Immature Granulocyte # (Auto) 0.03 K/uL (0.00-0.02) Anion Gap 4.0 mmol/L (3-11) Est Creatinine Clear Calc Drug Dose 77.6 ml/min Estimated GFR () 98.2 Estimated GFR (Non- 84.8 BUN/Creatinine Ratio 14.1 (10-20) Calcium Level 9.4 mg/dl (8.5-10.1) Total Bilirubin 0.3 mg/dl (0.2-1) Direct Bilirubin < 0.1 mg/dl (0-0.2) Aspartate Amino Transf (AST/SGOT) 10 U/L (15-37) Alanine Aminotransferase (ALT/SGPT) 20 U/L (12-78) Alkaline Phosphatase 93 U/L (45-117) Total Protein 7.3 gm/dl (6.4-8.2) Albumin 3.4 gm/dl (3.4-5.0) Lipase 96 U/L (73-393) Bedside Troponin I < 0.030 ng/ml (0-0.045) Laboratory studies as stated above per my review. Medications Administered Medications (Trade) Dose Ordered Sig/Beatrice Route Start Time Stop Time Status Last Admin Dose Admin Hydromorphone HCl (Dilaudid Inj) 0.5 mg NOW STAT IV 11/20/17 09:11 11/20/17 09:13 DC 11/20/17 09:25 0.5 MG Prednisone (PredniSONE TAB) 60 mg NOW STAT PO 11/20/17 10:16 11/20/17 10:17 DC 11/20/17 10:22 60 MG ECG Per My Interpretation Indication: back/shoulder pain (Left neck, shoulder, arm pain) Rate (beats per minute): 89 Rhythm: normal sinus Findings: no acute ischemic change, no ectopy, other (No PVCs) Comparison ECG Date: 03/31/2016 Change: no significant change ED Course 0846: Past medical records reviewed. The patient was evaluated in room A11B, and a complete history and physical examination were performed. 0911: Ordered Dilaudid 0.5 mg IV. 1016: Ordered Prednisone 60 mg PO. 1019: Upon reevaluation, the patient is resting in bed. She is 100% improved and watching TV, she is freely moving her neck. I discussed the results and treatment plan with her. She verbalized agreement of the treatment plan. The patient was discharged home. Medical Decision Differential Diagnosis includes; Cervical disc injury, musculoskeletal pain, cardiac disease, infection, electrolyte or metabolic abnormality. This patient comes in as described above she has neck pain. It is worse with movement. She is [id number] she has no meningeal signs. Does radiate up into her head has a history of neck pain. She is no neurologic deficits. No trauma. She has no chest pain nothing to suggest acute cardiac disease. CAT scans were obtained a head neck which showed degenerative findings in the neck. There is nothing to suggest acute pulmonary process congestive heart failure pneumothorax she did have a chest x-ray as well. EKG does not suggest acute coronary syndrome or significant arrhythmia. Her troponin is not elevated. She has no acute electrolyte or metabolic abnormalities with exception of elevated glucose, she is a known diabetic. She was given IV Dilaudid. She is not driving. Upon reassessment, she seems resting very comfortably and is in no distress. She feels up to going home. I think this is reasonable for discharge. She was given prednisone 60 mg p.o. and will also be given a Medrol Dosepak. She will get given a small prescription for OxyIR 5 mg 1 pill every 6 hours. she was warned this could make her drowsy and do not take before drinking, driving, working. She is encouraged to follow-up with her regular doctor. return to ER if: Fever or chills, numbness or weakness, worsening of symptoms, any new problems or concerns. She is happy the plan and discharged to home. Medication Reconcilliation Current Medication List: was personally reviewed by me Blood Pressure Screening Patient's blood pressure: Normal blood pressure Impression Primary Impression: Neck pain Additional Impression: Cervical disc disease Scribe Attestation The scribe's documentation has been prepared under my direction and personally reviewed by me in its entirety. I confirm that the note above accurately reflects all work, treatment, procedures, and medical decision making performed by me. Departure Information Dispostion Home / Self-Care Prescriptions Methylprednisolone (MEDROL DOSEPAK) 4 Mg Maynor 0 PO DAILY, #1 PKT Prov: Don Mejia M.D. 11/20/17 Oxycodone Immediate Rel Tab (ROXICODONE IR) 5 Mg Tab 1 TAB PO Q6 Y for Severe Pain, #14 TAB Prov: Don Mejia M.D. 11/20/17 Referrals No Doctor, Assigned (PCP) Forms HOME CARE DOCUMENTATION FORM, IMPORTANT VISIT INFORMATION, WORK / SCHOOL INSTRUCTIONS Patient Instructions My [facility] Additional Instructions Rest. Return if: inreasing pain, numbness or weakness, fever or chills, any new problems or concerns Continue to use your Aleve if needed Medrol Dosepak as directedsteroid. Check your blood sugar frequently For more severe pain, may use OxyIR 5 mg, 1 pill every 6 hours as needed OxyIR may make you drowsy do not take before drinking, driving, working Follow-up with your doctor either tomorrow or Friday for recheck or return to the ER if symptoms worsen. Problem Qualifiers
[2017-11-20] MEDS ORDERED: HYDROmorphone INJ 0.5 MG/0.5 ML SYR IV STA (09:11)
[2017-11-20 09:38] LABS: BASO % 0.2 %; BASO ABS # 0.02 K/uL (0-0.2); EOS % 1.8 %; EOS ABS # 0.17 K/uL (0-0.5); HEMATOCRIT 46.4 % (37-47); HEMOGLOBIN 15.8 g/dL (12.0-16.0); IG# 0.03 K/uL (0.00-0.02); LYMPH % 28.5 %; LYMPH ABS # 2.74 K/uL (1.2-3.4); MEAN CELL VOLUME 93.2 fL (80-100); MEAN CORPUSCULAR HEMOGLOBIN 31.7 pg (25-34); MEAN CORPUSCULAR HGB CONC 34.1 g/dl (32-36); MEAN PLATELET VOLUME 11.6 fL (7.4-10.4); MONO ABS # 0.58 K/uL (0.11-0.59); NEUT % 63.2 %; NEUT ABS # 6.07 K/uL (1.4-6.5); PLATELET COUNT 200 K/uL (130-400); RED CELL DISTRIBUTION WIDTH CV 12.5 % (11.5-14.5); RED CELL DISTRIBUTION WIDTH SD 42.3 fL (36.4-46.3); WHITE BLOOD COUNT 9.61 K/uL (4.8-10.8)
[2017-11-20] MEDS ORDERED: XNX5 PO (09:39)
--- NOTE | 2017-11-20 09:47 | DIAGNOSTIC IMAGING REPORT ---
CHEST ONE VIEW PORTABLE CLINICAL HISTORY: 52 years-old Female presenting with CHEST PAIN. TECHNIQUE: Portable upright AP view of the chest was obtained. COMPARISON: 12/31/2015. FINDINGS: Cardiomediastinal silhouette normal. No focal opacity. No large effusion or pneumothorax. Stippled calcification in the left humeral head may suggest a chondroid lesion. This is unchanged at least since 2016. Upper abdomen normal. IMPRESSION: 1. No acute cardiopulmonary disease. Electronically signed by: Randal Britton M.D. 11/20/2017 9:46 AM Dictated Date/Time: 11/20/2017 9:45 AM
[2017-11-20 09:56] LABS: ALBUMIN 3.4 gm/dl (3.4-5.0); ALKALINE PHOSPHATASE 93 U/L (45-117); ALT/SGPT 20 U/L (12-78); AST/SGOT 10 U/L (15-37); BLOOD UREA NITROGEN 11 mg/dl (7-18); CALCIUM 9.4 mg/dl (8.5-10.1); CARBON DIOXIDE 31 mmol/L (21-32); GLUCOSE 296 mg/dl (70-99); LIPASE 96 U/L (73-393); POTASSIUM 4.3 mmol/L (3.5-5.1); SODIUM 136 mmol/L (136-145); TOTAL PROTEIN 7.3 gm/dl (6.4-8.2)
--- NOTE | 2017-11-20 09:57 | DIAGNOSTIC IMAGING REPORT ---
HEAD WITHOUT CONTRAST (CT) CLINICAL HISTORY: 52 years-old Female presenting with headache, neck pain beginning yesterday morning along the right side of the neck radiating to the left shoulder. TECHNIQUE: Multidetector CT imaging of the head was performed without the use of intravenous contrast. IV contrast: None. A dose lowering technique was used consistent with the principles of ALARA (as low as reasonably achievable). COMPARISON: 06/18/2013. CT DOSE (mGy.cm): The estimated cumulative dose is 817.59. FINDINGS: Cco topogram: Stippled calcification in the left humeral head suggests a chondroid lesion. The patient is edentulous. Ventricles and sulci normal in size. Brain parenchyma normal in appearance with preserved webb-white differentiation. No mass effect or midline shift. No hemorrhage or acute territorial infarct. No extra-axial fluid collection. Paranasal sinuses and mastoid air cells clear. Calvarium intact. IMPRESSION: 1. No acute intracranial abnormality. Electronically signed by: Randal Britton M.D. 11/20/2017 9:56 AM Dictated Date/Time: 11/20/2017 9:53 AM
--- NOTE | 2017-11-20 10:06 | DIAGNOSTIC IMAGING REPORT ---
CERVICAL SPINE CT CT DOSE: 817.59 mGy.cm HISTORY: neck pain TECHNIQUE: Multiaxial CT images of the cervical spine were performed and reformatted in the sagittal and coronal plane without the use of contrast. A dose lowering technique was utilized adhering to the principles of ALARA. COMPARISON: Chest CTA 06/18/2013. FINDINGS: Mild emphysema. No pneumothorax. Best seen on image 491 there are biapical irregular nodules. A 4 mm nodule within the right lung apex remain stable compared to 2013. Therefore, this is considered to be benign. Additional 4 mm nodule within the right lung apex is similar to the 03/22/2016 examination. 5 mm nodule within the left lung apex is also similar to the 2015 examination. However, this is new from the 2013 examination. Multinodular and mildly enlarged thyroid gland is again noted. Dominant nodule in the lower pole measures 1 cm. No fracture or subluxation within the cervical spine. Mild disc space narrowing at C5-C6 and C6-C7 with endplate osteophytes. IMPRESSION: 1. No fractures within the cervical spine. 2. Mild degenerative disc disease at C5-C6 and C6-C7. 3. Biapical irregular subcentimeter nodules as described above. A six-month chest CT follow up is recommended to ensure stability. Electronically signed by: Iggy Arango M.D. 11/20/2017 10:05 AM Dictated Date/Time: 11/20/2017 9:56 AM
[2017-11-20 10:19] VITALS: BP 122/78; PULSE 83; O2SAT 92
[2017-11-20] MEDS ORDERED: METH4PAK PO (10:20)
[2017-11-20] MEDS ORDERED: OXYC-737 PO (10:20)
== END 2017-11-20 10:30 | disposition home or self-care (01) ==
LOC: C.EDB 08:37 → C.EDA 10:30
DX: M50.90 Cervical disc disorder, unspecified, unspecified cervical region (principal); J45.909 Unspecified asthma, uncomplicated; F31.9 Bipolar disorder, unspecified; J44.9 Chronic obstructive pulmonary disease, unspecified; E10.9 Type 1 diabetes mellitus without complications; K21.9 Gastro-esophageal reflux disease without esophagitis; I10 Essential (primary) hypertension; F17.210 Nicotine dependence, cigarettes, uncomplicated; Z79.4 Long term (current) use of insulin; Z79.899 Other long term (current) drug therapy; Z88.5 Allergy status to narcotic agent; Z88.8 Allergy status to other drugs, medicaments and biological substances; Z91.018 Allergy to other foods